=== PATIENT | male | born 1930 | race Caucasian/White ===

== ENCOUNTER 2017-03-10 16:47 | Emergency (ER) | payer MEDICARE, BC ==
--- NOTE | 2017-03-10 17:45 | EDM.PDOC ---
ED HPI GENERAL MEDICAL PROBLEM - General Chief Complaint: Syncope Stated Complaint: EVERYTHING WENT WHITE Time Seen by Provider: 03/10/17 17:03 Source of Information: Reports: Patient, Family, RN Notes Reviewed History Limitations: Reports: No Limitations - History of Present Illness INITIAL COMMENTS - FREE TEXT/NARRATIVE: 86-year-old gentleman presents emergency department today following an episode where he lost his color vision he states he can still make out detail but everything appeared to be white he states he did feel little dizzy he had been working in the garden but was sitting down when the event happened he states it lasted for a few moments and now everything is return to normal he feels back to his usual self - Related Data Allergies Allergy/AdvReac Type Severity Reaction Status Date / Time amoxicillin Allergy Cannot Verified 03/10/17 16:58 Remember Home Meds: Home Meds Aspirin [Halfprin] 81 mg PO DAILY 05/09/14 [History] Simvastatin [Zocor] 40 mg PO DAILY 05/09/14 [History] amLODIPine Besylate [Amlodipine Besylate] 5 mg PO DAILY 05/09/14 [History] Losartan Potassium 1 tab PO DAILY 09/26/15 [History] Calcium Carbonate [Antacid] 20 mg PO DAILY 08/22/16 [History] Cholecalciferol (Vitamin D3) [Vitamin D3] 1,000 unit PO DAILY 08/22/16 [History] Lisinopril 2.5 mg PO DAILY 03/10/17 [History] Past Medical History HEENT History: Reports: Cataract, Impaired Vision Cardiovascular History: Reports: Blood Clots/VTE/DVT, Bypass, CAD, High Cholesterol, Hypertension, Stents Gastrointestinal History: Reports: GERD Other Gastrointestinal History: colitis Genitourinary History: Reports: Renal Calculus Musculoskeletal History: Reports: Other (See Below) Other Musculoskeletal History: bursitis left - Infectious Disease History Infectious Disease History: Reports: Shingles - Past Surgical History HEENT Surgical History: Reports: Cataract Surgery, Tonsillectomy Cardiovascular Surgical History: Reports: Coronary Artery Bypass, Coronary Artery Stent GI Surgical History: Reports: Appendectomy Musculoskeletal Surgical History: Reports: Carpal Tunnel Social & Family History - Family History Family Medical History: Unobtainable - Tobacco Use Smoking Status *Q: Never Smoker Years of Tobacco use: 20 Used Tobacco, but Quit: No Month Tobacco Last Used: jul 1997 Second Hand Smoke Exposure: No - Caffeine Use Caffeine Use: Reports: Coffee, Soda - Alcohol Use Days Per Week of Alcohol Use: 0 - Recreational Drug Use Recreational Drug Use: No ED ROS GENERAL - Review of Systems Review Of Systems: See Below Constitutional: Reports: No Symptoms HEENT: Reports: Vision Change Cardiovascular: Reports: No Symptoms GI/Abdominal: Reports: No Symptoms Neurological: Reports: Dizziness ED EXAM, GENERAL - Physical Exam Exam: See Below Free Text/Narrative:: General: Elderly male, not in any distress, alert and oriented x3 HEENT: head is atraumatic normocephalic, eyes pupils equal round reactive to light, sclera clear no conjunctivitis appreciated. Funduscopic exam reveals sharp disc margins no papilledema Ears blocked by cerumen bilaterally bilaterally canals are clear. Nose no septal deviation, nares are clear, no blood present. Mouth mucosa is moist and pink no erythema or exudate noted in soft palate, tongue is midline uvula is midline, dentition is intact. Neck: Supple no thyromegaly no tracheal deviation. Nodes: Cervical nodes subclavicular nodes nontender no palpable lymphadenopathy noted. Lungs: clear to auscultation bilaterally with symmetrical respirations, no adventitious noise appreciated. CV: Regular rate and rhythm S1 and S2 appreciated no murmurs rubs or gallops noted. Abdomen: Soft, nontender, no palpable masses or organomegaly appreciated, no distention no guarding bowel sounds are present, . Neuro: Cranial nerves II through XII grossly intact Skin: Warm and dry, intact Extremities: No lower extremity edema appreciated, Course - Vital Signs Last Recorded V/S: Last Vital Signs Temp 97.4 F 03/10/17 16:55 Pulse 58 L 03/10/17 18:09 Resp 15 03/10/17 18:09 BP 114/61 03/10/17 18:09 Pulse Ox 95 03/10/17 18:09 - Orders/Labs/Meds Orders: Active Orders 24 hr Category Date Time Status Cardiac Monitoring [RC] .As Directed Care 03/10/17 17:42 Active EKG Documentation Completion [RC] ASDIRECTED Care 03/10/17 17:42 Active Chest 2V [CR] Stat Exams 03/10/17 17:42 Taken EKG 12 Lead [EK] Stat Ther 03/10/17 17:42 Ordered Labs: Laboratory Tests 03/10/17 03/10/17 Range/Units 17:50 17:50 WBC 9.6 (4.5-11.0) K/uL RBC 4.18 L (4.30-5.90) M/uL Hgb 12.4 (12.0-15.0) g/dL Hct 37.9 L (40.0-54.0) % MCV 91 (80-98) fL MCH 30 (27-31) pg MCHC 33 (32-36) % Plt Count 358 (150-400) K/uL Neut % (Auto) 69 H (36-66) % Lymph % (Auto) 17 L (24-44) % [place] % (Auto) 10 H (2-6) % Eos % (Auto) 3 (2-4) % Baso % (Auto) 1 (0-1) % Sodium 140 (140-148) mmol/L Potassium 5.1 (3.6-5.2) mmol/L Chloride 105 (100-108) mmol/L Carbon Dioxide 31 (21-32) mmol/L Anion Gap 4.3 L (5.0-14.0) mmol/L BUN 26 H (7-18) mg/dL Creatinine 1.8 H (0.8-1.3) mg/dL Est Cr Clr Drug Dosing TNP Estimated GFR (MDRD) 36 L (>60) Glucose 112 H (74-106) mg/dL Calcium 8.8 (8.5-10.1) mg/dL Total Bilirubin 0.5 (0.2-1.0) mg/dL AST 19 (15-37) U/L ALT 15 (12-78) U/L Alkaline Phosphatase 48 (46-116) U/L Total Protein 7.1 (6.4-8.2) g/dL Albumin 3.0 L (3.4-5.0) g/dL Globulin 4.1 H (2.3-3.5) g/dL Albumin/Globulin Ratio 0.7 L (1.2-2.2) Departure - Departure Time of Disposition: 18:35 Disposition: Home, Self-Care 01 Condition: Fair Clinical Impression: Loss of color - Discharge Information Forms: ED Department Discharge Additional Instructions: Please followup with your primary care provider in 3-4 days if not better, please call return to the emergency department with worsening of symptoms. - My Orders Last 24 Hours: My Active Orders 03/10/17 17:42 Cardiac Monitoring [RC] .As Directed EKG Documentation Completion [RC] ASDIRECTED Chest 2V [CR] Stat EKG 12 Lead [EK] Stat - Assessment/Plan Last 24 Hours: My Active Orders 03/10/17 17:42 Cardiac Monitoring [RC] .As Directed EKG Documentation Completion [RC] ASDIRECTED Chest 2V [CR] Stat EKG 12 Lead [EK] Stat Plan: Assessment Acuity = acute Site and laterality = bilateral loss of color vision with dizziness Etiology = unclear etiology all symptoms now resolved Manifestations = [pneumonia manifestations dyspnea, hypoxia, cough] Location of injury = Home Lab values = CBC unremarkable creatinine elevated 1.8 consistent chronic renal failure stage G IIIB albumin 3.0 consistent hypoalbuminemia EKG no ST elevations or depressions same as prior EKGs chest x-ray I did review films myself I cannot appreciate any acute process, the official read from radiology is pending Plan I did review lab work chest x-ray and EKG results with him recommend follow-up with primary care consider further evaluation perhaps with an MRI for the bilateral vision loss Patient was in agreement with the plan all questions were answered, they were instructed to return to the emergency department or call for worsening symptoms. This note was dictated using [employer] voice recognition software please call with any questions.
[2017-03-10 18:10] VITALS: BP 114/61
--- NOTE | 2017-03-11 08:34 | CR ---
Chest 2V INDICATION: cough COMPARISON: 08/22/2016 FINDINGS: Two views. Heart size normal. Sternotomy wires, most of which are fracture again noted. No infiltrates, pleural effusions, or signs of pulmonary edema. IMPRESSION: Nothing acute.
== END 2017-03-10 18:52 | disposition home or self-care (01) ==
LOC: JP.ED 16:47
DX: H54.3 Unqualified visual loss, both eyes (principal); R42 Dizziness and giddiness; I25.10 Atherosclerotic heart disease of native coronary artery without angina pectoris; E78.00 Pure hypercholesterolemia, unspecified; I10 Essential (primary) hypertension; K21.9 Gastro-esophageal reflux disease without esophagitis; Z86.718 Personal history of other venous thrombosis and embolism; Z88.1 Allergy status to other antibiotic agents; Z79.82 Long term (current) use of aspirin; Z79.899 Other long term (current) drug therapy; Z87.442 Personal history of urinary calculi; Z98.49 Cataract extraction status, unspecified eye; Z95.1 Presence of aortocoronary bypass graft; Z95.5 Presence of coronary angioplasty implant and graft; Z90.49 Acquired absence of other specified parts of digestive tract; Z98.890 Other specified postprocedural states
CPT/HCPCS: 36415; 71020; 71020-26; 80053; 85025; 93005; 93010; 99283; 99284-25

== ENCOUNTER 2017-03-23 18:39 | Emergency (ER) | payer MEDICARE, BC ==
[2017-03-23 18:54] VITALS: BP 154/60
--- NOTE | 2017-03-23 19:18 | EDM.PDOC ---
ED HPI GENERAL MEDICAL PROBLEM - General Chief Complaint: Laceration Stated Complaint: L THUMB LACERATION Time Seen by Provider: 03/23/17 19:10 Source of Information: Reports: Patient History Limitations: Reports: No Limitations - History of Present Illness INITIAL COMMENTS - FREE TEXT/NARRATIVE: 86 yo male here after lacerating the dorsum of his L thumb with a hand saw before arrival. Tetanus is UTD. Has a small kathie to the adjacent L index finger as well. Onset: Today Onset Date: 03/23/17 Onset Time: 18:00 Duration: Minutes:, Constant Location: Reports: Upper Extremity, Left Quality: Reports: Dull Severity: Mild Improves with: Reports: None Worsens with: Reports: None Associated Symptoms: Reports: No Other Symptoms Treatments RESTORATIVE AIDE: Reports: Other (see below) (none) Left Hand Pain Score (Numeric/FACES): 0 - Related Data Allergies Allergy/AdvReac Type Severity Reaction Status Date / Time amoxicillin Allergy Cannot Verified 03/10/17 16:58 Remember Home Meds: Home Meds Aspirin [Halfprin] 81 mg PO DAILY 05/09/14 [History] Simvastatin [Zocor] 40 mg PO DAILY 05/09/14 [History] Losartan Potassium 1 tab PO DAILY 09/26/15 [History] Calcium Carbonate [Antacid] 20 mg PO DAILY 08/22/16 [History] Cholecalciferol (Vitamin D3) [Vitamin D3] 1,000 unit PO DAILY 08/22/16 [History] Lisinopril 2.5 mg PO DAILY 03/10/17 [History] Past Medical History HEENT History: Reports: Cataract, Impaired Vision Cardiovascular History: Reports: Blood Clots/VTE/DVT, Bypass, CAD, High Cholesterol, Hypertension, [place], Stents Gastrointestinal History: Reports: GERD Other Gastrointestinal History: colitis Genitourinary History: Reports: Renal Calculus Musculoskeletal History: Reports: Other (See Below) Other Musculoskeletal History: bursitis left - Infectious Disease History Infectious Disease History: Reports: Shingles - Past Surgical History HEENT Surgical History: Reports: Cataract Surgery, Tonsillectomy Cardiovascular Surgical History: Reports: Coronary Artery Bypass, Coronary Artery Stent GI Surgical History: Reports: Appendectomy Musculoskeletal Surgical History: Reports: Carpal Tunnel Social & Family History - Family History Family Medical History: Unobtainable - Tobacco Use Smoking Status *Q: Never Smoker Years of Tobacco use: 20 Used Tobacco, but Quit: No Month Tobacco Last Used: jul 1997 Second Hand Smoke Exposure: No - Caffeine Use Caffeine Use: Reports: Coffee - Alcohol Use Days Per Week of Alcohol Use: 0 - Recreational Drug Use Recreational Drug Use: No ED ROS GENERAL - Review of Systems Review Of Systems: See Below Constitutional: Reports: No Symptoms Musculoskeletal: Reports: No Symptoms Skin: Reports: Wound (L thumb/index fingers) Neurological: Reports: No Symptoms ED EXAM, SKIN/RASH Exam: See Below Exam Limited By: No Limitations General Appearance: Alert, WD/WN, No Apparent Distress Extremities: Other (L hand wound) Neurological: Alert, Oriented, CN II-XII Intact, Normal Cognition, No Motor/ Sensory Deficits Psychiatric: Normal Affect, Normal Mood Skin: Warm, Dry, Normal Color, No Rash, Wound/Incision (2 cm linear laceration to the dorsum of the L thumb just distal to the IP jt. Small linear laceration to the adjacent index finger not requiring repair. No active bleeding. No infection or FB.) Location, Skin: Upper Extremity, Left Characteristics: Linear Associated features: Tenderness. No: Warmth, Induration Lymphatic: No Adenopathy ED SKIN PROCEDURES - Laceration/Wound Repair Left Dorsal Finger Lac/Wound length In cm: 2 Appearance: Subcutaneous, Linear, Clean Distal NVT: Neuro & Vascular Intact, No Tendon Injury Anesthetic Type: Local Local Anesthesia - Lidocaine (Xylocaine): 1% Plain Local Anesthetic Volume: 3cc Skin Prep: Saline Exploration/Debridement/Repair: Wound Explored Closed with: Sutures Suture Size: other (5-0 Ethilon) # of Sutures: 4 Suture Type: Nylon Drain Placement: No Sterile Dressing Applied: Nurse Tetanus Status Addressed: Yes Complications: No Course - Vital Signs Last Recorded V/S: Last Vital Signs Temp 36.4 C 03/23/17 18:53 Pulse 49 L 03/23/17 18:53 Resp 16 03/23/17 18:53 BP 154/60 H 03/23/17 18:53 Pulse Ox - Orders/Labs/Meds Orders: Active Orders 24 hr Category Date Time Status Lidocaine 1% [Xylocaine-MPF 1%] Med 03/23/17 19:13 Once 5 ml INJECT ONETIME ONE Departure - Departure Time of Disposition: 19:35 Disposition: Home, Self-Care 01 Condition: Good Clinical Impression: Laceration of thumb Qualifiers: Encounter type: initial encounter Damage to nail status: without damage Foreign body presence: without foreign body Laterality: left Qualified Code(s): S61.012A - Laceration without foreign body of left thumb without damage to nail , initial encounter - Discharge Information Referrals: Heraclio Dye MD [Primary Care Provider] - - My Orders Last 24 Hours: My Active Orders 03/23/17 19:13 Lidocaine 1% [Xylocaine-MPF 1%] 5 ml INJECT ONETIME ONE - Assessment/Plan Last 24 Hours: My Active Orders 03/23/17 19:13 Lidocaine 1% [Xylocaine-MPF 1%] 5 ml INJECT ONETIME ONE
[2017-03-23] MEDS ORDERED: Bacitracin Oint 1 GM U/D Packet ONE (19:41)
== END 2017-03-23 19:58 | disposition home or self-care (01) ==
LOC: JP.ED 18:39
DX: S61.012A Laceration without foreign body of left thumb without damage to nail, initial encounter (principal); I25.10 Atherosclerotic heart disease of native coronary artery without angina pectoris; E78.00 Pure hypercholesterolemia, unspecified; I25.2 Old myocardial infarction; I10 Essential (primary) hypertension; K21.9 Gastro-esophageal reflux disease without esophagitis; Z88.1 Allergy status to other antibiotic agents; Z87.442 Personal history of urinary calculi; Z86.718 Personal history of other venous thrombosis and embolism; Z79.82 Long term (current) use of aspirin; Z79.899 Other long term (current) drug therapy; Z98.49 Cataract extraction status, unspecified eye; Z95.1 Presence of aortocoronary bypass graft; Z95.5 Presence of coronary angioplasty implant and graft; Z90.49 Acquired absence of other specified parts of digestive tract; Z98.890 Other specified postprocedural states; W27.0XXA Contact with workbench tool, initial encounter
CPT/HCPCS: 12001; 90471; 99283; 99283-25

== ENCOUNTER 2017-07-16 14:10 | Emergency (ER) | payer MEDICARE, BC ==
[2017-07-16 14:30] VITALS: BP 139/57
--- NOTE | 2017-07-16 17:49 | EDM.PDOC ---
ED HPI GENERAL MEDICAL PROBLEM - General Chief Complaint: Gastrointestinal Problem Stated Complaint: UNABLE TO PASS STOOLS Time Seen by Provider: 07/16/17 14:54 Source of Information: Reports: Patient, Family History Limitations: Reports: No Limitations - History of Present Illness INITIAL COMMENTS - FREE TEXT/NARRATIVE: This gentleman complains of vague abdominal pain for the last 2 days or so. He has frequent flatus and sometimes passes a little tiny bit of blood. He hasn't had a bowel movement for 2 days. There is a history of a small bowel obstruction. Denies any fever denies any urinary difficulties. His son said that occasionally he's had a little bit of blood in his urine for a long time. Patient says he eats all the time but the food just doesn't seem to come out the other end. Most of his abdominal pain he says is kind of around the gisell Umbilical area - Related Data Allergies Allergy/AdvReac Type Severity Reaction Status Date / Time amoxicillin Allergy Cannot Verified 03/10/17 16:58 Remember Home Meds: Home Meds Aspirin [Halfprin] 81 mg PO DAILY 05/09/14 [History] Simvastatin [Zocor] 40 mg PO DAILY 05/09/14 [History] Losartan Potassium 1 tab PO DAILY 09/26/15 [History] Calcium Carbonate [Antacid] 20 mg PO DAILY 08/22/16 [History] Cholecalciferol (Vitamin D3) [Vitamin D3] 1,000 unit PO DAILY 08/22/16 [History] Lisinopril 2.5 mg PO DAILY 03/10/17 [History] Past Medical History HEENT History: Reports: Cataract, Impaired Vision Cardiovascular History: Reports: Blood Clots/VTE/DVT, Bypass, CAD, High Cholesterol, Hypertension, [place], Stents Gastrointestinal History: Reports: GERD Other Gastrointestinal History: colitis Genitourinary History: Reports: Renal Calculus Musculoskeletal History: Reports: Other (See Below) Other Musculoskeletal History: bursitis left - Infectious Disease History Infectious Disease History: Reports: Shingles - Past Surgical History HEENT Surgical History: Reports: Cataract Surgery, Tonsillectomy Cardiovascular Surgical History: Reports: Coronary Artery Bypass, Coronary Artery Stent GI Surgical History: Reports: Appendectomy Musculoskeletal Surgical History: Reports: Carpal Tunnel Social & Family History - Family History Family Medical History: Unobtainable - Tobacco Use Smoking Status *Q: Never Smoker Years of Tobacco use: 20 Used Tobacco, but Quit: No Month Tobacco Last Used: jul 1997 Second Hand Smoke Exposure: No - Caffeine Use Caffeine Use: Reports: Coffee - Alcohol Use Days Per Week of Alcohol Use: 0 - Recreational Drug Use Recreational Drug Use: No ED ROS GENERAL - Review of Systems Review Of Systems: ROS reveals no pertinent complaints other than HPI. ED EXAM, GI/ABD - Physical Exam Exam: See Below Exam Limited By: No Limitations General Appearance: Alert, WD/WN, No Apparent Distress Eyes: Bilateral: Normal Appearance Throat/Mouth: Normal Inspection Respiratory/Chest: Lungs Clear Cardiovascular: Normal Peripheral Pulses, Regular Rate, Rhythm GI/Abdominal Exam: Normal Bowel Sounds, Soft, Non-Tender, Other (There is some very slight scant inflammation at the umbilicus but I probed this with my fingertip and it is completely nontender. Most likely is just a slight amount of yeast and doesn't need treatment.) Rectal (Males) Exam: Normal Exam, Other (Prostate slightly enlarged and just minimally tender. There was a trace of bloody mucus on the tip of my finger but no stool was present) Extremities: Normal Inspection Course - Vital Signs Last Recorded V/S: Last Vital Signs Temp 35.8 C 07/16/17 14:28 Pulse 51 L 07/16/17 14:28 Resp 14 07/16/17 14:28 BP 139/57 L 07/16/17 14:28 Pulse Ox 98 07/16/17 14:28 - Orders/Labs/Meds Orders: Active Orders 24 hr Category Date Time Status Abdomen Pelvis wo Cont [CT] Stat Exams 07/16/17 15:21 Taken Labs: Laboratory Tests 07/16/17 07/16/17 07/16/17 Range/Units 15:32 15:32 15:40 WBC 6.9 (4.5-11.0) K/uL RBC 4.32 (4.30-5.90) M/uL Hgb 12.9 (12.0-15.0) g/dL Hct 38.8 L (40.0-54.0) % MCV 90 (80-98) fL MCH 30 (27-31) pg MCHC 33 (32-36) % Plt Count 258 (150-400) K/uL Neut % (Auto) 65 (36-66) % Lymph % (Auto) 24 (24-44) % [place] % (Auto) 8 H (2-6) % Eos % (Auto) 3 (2-4) % Baso % (Auto) 1 (0-1) % Sodium 137 L (140-148) mmol/L Potassium 4.9 (3.6-5.2) mmol/L Chloride 101 (100-108) mmol/L Carbon Dioxide 27 (21-32) mmol/L Anion Gap 13.9 (5.0-14.0) mmol/L BUN 27 H (7-18) mg/dL Creatinine 1.4 H (0.8-1.3) mg/dL Est Cr Clr Drug Dosing 40.34 mL/min Estimated GFR (MDRD) 48 L (>60) Glucose 97 (74-106) mg/dL Calcium 9.2 (8.5-10.1) mg/dL Total Bilirubin 0.7 (0.2-1.0) mg/dL AST 25 (15-37) U/L ALT 20 (12-78) U/L Alkaline Phosphatase 47 (46-116) U/L Total Protein 7.3 (6.4-8.2) g/dL Albumin 3.6 (3.4-5.0) g/dL Globulin 3.7 H (2.3-3.5) g/dL Albumin/Globulin Ratio 1.0 L (1.2-2.2) Urine Color Yellow Urine Appearance Clear Urine pH 5.0 (4.5-8.0) Ur Specific [place] 1.020 (1.008-1.030) Urine Protein Negative (NEGATIVE) mg/dL Urine Glucose (UA) Normal (NEGATIVE) mg/dL Urine Ketones Negative (NEGATIVE) mg/dL Urine Occult Blood Large (NEGATIVE) Urine Nitrite Negative (NEGAITVE) Urine Bilirubin Negative (NEGATIVE) Urine Urobilinogen Normal (NORMAL) mg/dL Ur Leukocyte Esterase Negative (NEGATIVE) Urine RBC 5-10 H (0-5) Urine WBC 0-5 (0-5) Ur Epithelial Cells Rare Amorphous Sediment Not seen Urine Bacteria Few Urine Mucus Few - Radiology Interpretation Free Text/Narrative:: Noncontrast CT of the abdomen shows no acute abnormalities. There is a moderate amount of gas throughout the colon but definitely no obstruction. There is no evidence of any constipation Departure - Departure Time of Disposition: 17:46 Disposition: Home, Self-Care 01 Condition: Fair Clinical Impression: Abdominal pain - Discharge Information Instructions: Abdominal Pain, Adult, [id number] Referrals: Heraclio Dye MD [Primary Care Provider] - Forms: ED Department Discharge Additional Instructions: There was no blockage and there was no constipation. The pain appears to be caused by some excess gas in the large and small bowel even though there is not any kind of obstruction. Try using Simethicone, which is found in medicines like Gas-X and Mylicon. About 160 mg 4 times a day should be enough. See your Dr. if no better in 2 or 3 days or return to the ER at any time - My Orders Last 24 Hours: My Active Orders 07/16/17 15:21 Abdomen Pelvis wo Cont [CT] Stat - Assessment/Plan Last 24 Hours: My Active Orders 07/16/17 15:21 Abdomen Pelvis wo Cont [CT] Stat
== END 2017-07-16 18:27 | disposition home or self-care (01) ==
LOC: JP.ED 14:10
DX: R10.9 Unspecified abdominal pain (principal); E78.00 Pure hypercholesterolemia, unspecified; Z79.82 Long term (current) use of aspirin; Z79.899 Other long term (current) drug therapy; Z88.1 Allergy status to other antibiotic agents
CPT/HCPCS: 36415; 74176; 80053; 81001; 85025; 99283; 99284-25

== ENCOUNTER 2018-03-22 09:48 | Emergency (ER) | payer MEDICARE, BC ==
--- NOTE | 2018-03-22 12:09 | CT ---
Head wo Cont CLINICAL HISTORY: Falling and vision changes COMPARISON: None TECHNIQUE: Transverse scans were obtained from the base of the skull through the vertex without IV co ntrast on a multislice, multidetector CT scanner. Auto dosage reduction and iterative reconstruction techniques employed. FINDINGS: No focal abnormal parenchymal density is identified. There is no mass effect, hemorrhage, o r extraaxial collection. The basal cisterns and sulci over the convexities are moderately prominent p articularly over the frontal lobes. The ventricles are prominent.. IMPRESSION: Moderate atrophy. This is particularly prominent over the frontal lobes. This is likely d ue to settling. The bilateral subdural hygromas are felt less likely. No focal mass or hemorrhage.
[2018-03-22] MEDS ORDERED: Sodium Chloride 0.9% 1,000 ML IV SCH (12:30)
--- NOTE | 2018-03-22 12:40 | EDM.PDOC ---
ED HPI GENERAL MEDICAL PROBLEM - General Chief Complaint: General Stated Complaint: WEAKNESS AND FALLING Time Seen by Provider: 03/22/18 10:25 Source of Information: Reports: Patient History Limitations: Reports: No Limitations - History of Present Illness INITIAL COMMENTS - FREE TEXT/NARRATIVE: pt is suddenly having falls. In the last 2-3 days he has fallen 3 times. He states he feels lite headed and loses his balance but he does not pass out. Onset: Gradual, Other (last 3 days. He has not had chest pain. He is having some left shoulder pain and ia tender since the last fall. ) Duration: Hour(s): Location: Reports: Head, Chest Associated Symptoms: Reports: Weakness, Other (pt feels like he is going to pass out but he does not. ) - Related Data Allergies Allergy/AdvReac Type Severity Reaction Status Date / Time amoxicillin Allergy Cannot Verified 03/22/18 10:32 Remember Home Meds: Home Meds Aspirin [Halfprin] 81 mg PO DAILY 05/09/14 [History] Simvastatin [Zocor] 40 mg PO DAILY 05/09/14 [History] Losartan Potassium 1 tab PO DAILY 09/26/15 [History] Calcium Carbonate [Antacid] 20 mg PO DAILY 08/22/16 [History] Cholecalciferol (Vitamin D3) [Vitamin D3] 1,000 unit PO DAILY 08/22/16 [History] amLODIPine [Norvasc] 5 mg PO DAILY 03/22/18 [History] Past Medical History HEENT History: Reports: Cataract, Impaired Vision Cardiovascular History: Reports: Blood Clots/VTE/DVT, Bypass, CAD, High Cholesterol, Hypertension, [place], Stents Gastrointestinal History: Reports: GERD Other Gastrointestinal History: colitis Genitourinary History: Reports: Renal Calculus Musculoskeletal History: Reports: Other (See Below) Other Musculoskeletal History: bursitis left - Infectious Disease History Infectious Disease History: Reports: Chicken Pox, Mumps, Shingles - Past Surgical History HEENT Surgical History: Reports: Cataract Surgery, Tonsillectomy Cardiovascular Surgical History: Reports: Coronary Artery Bypass, Coronary Artery Stent GI Surgical History: Reports: Appendectomy Musculoskeletal Surgical History: Reports: Carpal Tunnel Social & Family History - Family History Family Medical History: Unobtainable - Tobacco Use Smoking Status *Q: Former Smoker Years of Tobacco use: 30 Used Tobacco, but Quit: Yes Month/Year Tobacco Last Used: 06/1998 - Caffeine Use Caffeine Use: Reports: Coffee, Soda - Recreational Drug Use Recreational Drug Use: No ED ROS GENERAL - Review of Systems Review Of Systems: See Below Constitutional: Reports: No Symptoms HEENT: Reports: No Symptoms Respiratory: Reports: Shortness of Breath Cardiovascular: Reports: Other (pt is getting lite headed and sweaty. ) Endocrine: Reports: No Symptoms GI/Abdominal: Reports: No Symptoms : Reports: No Symptoms Musculoskeletal: Reports: No Symptoms Skin: Reports: No Symptoms ED EXAM, GENERAL - Physical Exam Exam: See Below Free Text/Narrative:: pt has fallen 3 times in the last 3 dayus. He does not have a loss of consciouness at that time. He is sweaty usually when he has the episodes. He has had left shoulder pain but he thinks this was from the fall. he has not had chest pain. He is mildly sob. Exam Limited By: Other (pt is a active 80 year old who lives at home.) General Appearance: Alert, Mild Distress, Other (pupils are equal and reactive. ) Ears: Normal TMs Nose: Normal Inspection Throat/Mouth: Normal Inspection Head: Atraumatic Neck: Normal Inspection Respiratory/Chest: No Respiratory Distress Cardiovascular: Regular Rate, Rhythm, Bradycardia, Other (sinus rhythm with rate that drop in the 45 range) GI/Abdominal: Soft, Non-Tender (Male) Exam: Deferred Rectal (Males) Exam: Deferred Back Exam: Normal Inspection Extremities: Normal Inspection Neurological: Alert, Oriented, Normal Cognition Psychiatric: Normal Affect Course - Vital Signs Last Recorded V/S: Last Vital Signs Temp 36.5 C 03/22/18 10:46 Pulse 44 L 03/22/18 13:25 Resp 15 03/22/18 13:25 BP 122/39 L 03/22/18 13:25 Pulse Ox 98 03/22/18 13:25 Orthostatic Blood Pressure [ 123/42 Standing] Orthostatic Blood Pressure [ 101/41 Sitting] Orthostatic Blood Pressure [ 116/43 Supine] - Orders/Labs/Meds Orders: Active Orders 24 hr Category Date Time Status EKG Documentation Completion [RC] ASDIRECTED Care 03/22/18 12:05 Active Chest 1V Frontal [CR] Stat Exams 03/22/18 12:33 Taken Shoulder Comp Lt [CR] Stat Exams 03/22/18 12:33 Taken UA W/MICROSCOPIC [URIN] Urgent Lab 03/22/18 11:19 Ordered Sodium Chloride 0.9% [Normal Saline] 1,000 ml Med 03/22/18 12:30 Active IV ASDIRECTED EKG 12 Lead [EK] Routine Ther 03/22/18 12:05 Ordered Medication Orders Sodium Chloride (Normal Saline) 1,000 mls @ 999 mls/hr IV ASDIRECTED SERA Last Admin: 03/22/18 12:33 Dose: 999 mls/hr Labs: Laboratory Tests 03/22/18 03/22/18 03/22/18 Range/Units 11:00 11:00 11:19 WBC 7.8 (4.5-11.0) K/uL RBC 4.16 L (4.30-5.90) M/uL Hgb 12.5 (12.0-15.0) g/dL Hct 37.7 L (40.0-54.0) % MCV 91 (80-98) fL MCH 30 (27-31) pg MCHC 33 (32-36) % Plt Count 265 (150-400) K/uL Neut % (Auto) 69 H (36-66) % Lymph % (Auto) 17 L (24-44) % [place] % (Auto) 9 H (2-6) % Eos % (Auto) 4 (2-4) % Baso % (Auto) 1 (0-1) % Sodium 135 L (140-148) mmol/L Potassium 4.6 (3.6-5.2) mmol/L Chloride 102 (100-108) mmol/L Carbon Dioxide 27 (21-32) mmol/L Anion Gap 10.6 (5.0-14.0) mmol/L BUN 21 H (7-18) mg/dL Creatinine 1.6 H (0.8-1.3) mg/dL Est Cr Clr Drug Dosing 35.70 mL/min Estimated GFR (MDRD) 41 L (>60) Glucose 105 (74-106) mg/dL Calcium 9.1 (8.5-10.1) mg/dL Total Bilirubin 0.6 (0.2-1.0) mg/dL AST 39 H (15-37) U/L ALT 22 (12-78) U/L Alkaline Phosphatase 48 (46-116) U/L Troponin I (0.000-0.056) ng/mL Total Protein 6.6 (6.4-8.2) g/dL Albumin 3.2 L (3.4-5.0) g/dL Globulin 3.4 (2.3-3.5) g/dL Albumin/Globulin Ratio 0.9 L (1.2-2.2) Urine Color Yellow Urine Appearance Clear Urine pH 5.0 (4.5-8.0) Ur Specific [place] 1.010 (1.008-1.030) Urine Protein Negative (NEGATIVE) mg/dL Urine Glucose (UA) Normal (NEGATIVE) mg/dL Urine Ketones Negative (NEGATIVE) mg/dL Urine Occult Blood Large (NEGATIVE) Urine Nitrite Negative (NEGAITVE) Urine Bilirubin Negative (NEGATIVE) Urine Urobilinogen Normal (NORMAL) mg/dL Ur Leukocyte Esterase Negative (NEGATIVE) Urine RBC 0-5 (0-5) Urine WBC 0-5 (0-5) Ur Epithelial Cells Not seen Amorphous Sediment Rare Urine Bacteria Not seen Urine Mucus Not seen 03/22/18 Range/Units 12:05 WBC (4.5-11.0) K/uL RBC (4.30-5.90) M/uL Hgb (12.0-15.0) g/dL Hct (40.0-54.0) % MCV (80-98) fL MCH (27-31) pg MCHC (32-36) % Plt Count (150-400) K/uL Neut % (Auto) (36-66) % Lymph % (Auto) (24-44) % [place] % (Auto) (2-6) % Eos % (Auto) (2-4) % Baso % (Auto) (0-1) % Sodium (140-148) mmol/L Potassium (3.6-5.2) mmol/L Chloride (100-108) mmol/L Carbon Dioxide (21-32) mmol/L Anion Gap (5.0-14.0) mmol/L BUN (7-18) mg/dL Creatinine (0.8-1.3) mg/dL Est Cr Clr Drug Dosing mL/min Estimated GFR (MDRD) (>60) Glucose (74-106) mg/dL Calcium (8.5-10.1) mg/dL Total Bilirubin (0.2-1.0) mg/dL AST (15-37) U/L ALT (12-78) U/L Alkaline Phosphatase (46-116) U/L Troponin I 0.080 H* (0.000-0.056) ng/mL Total Protein (6.4-8.2) g/dL Albumin (3.4-5.0) g/dL Globulin (2.3-3.5) g/dL Albumin/Globulin Ratio (1.2-2.2) Urine Color Urine Appearance Urine pH (4.5-8.0) Ur Specific [place] (1.008-1.030) Urine Protein (NEGATIVE) mg/dL Urine Glucose (UA) (NEGATIVE) mg/dL Urine Ketones (NEGATIVE) mg/dL Urine Occult Blood (NEGATIVE) Urine Nitrite (NEGAITVE) Urine Bilirubin (NEGATIVE) Urine Urobilinogen (NORMAL) mg/dL Ur Leukocyte Esterase (NEGATIVE) Urine RBC (0-5) Urine WBC (0-5) Ur Epithelial Cells Amorphous Sediment Urine Bacteria Urine Mucus Meds: Medications Generic Name Dose Route Start Last Admin Trade Name Freq PRN Reason Stop Dose Admin Sodium Chloride 1,000 mls @ 999 mls/hr 03/22/18 12:30 03/22/18 12:33 Normal Saline IV 999 mls/hr ASDIRECTED SERA Administration - Re-Assessments/Exams Free Text/Narrative Re-Assessment/Exam: 03/22/18 12:49 ekg shows poor r progression anteriorly. He has a elevated trop at .080. He has a drop in bp when he stands so he somewhat orthostatic. Pt did take asa 325 at home. 03/22/18 14:35 Departure - Departure Time of Disposition: 12:56 Disposition: DC/Tfer to Acute Hospital 02 Condition: Fair Clinical Impression: Elevated troponin, Bradycardia, Falling episodes - Discharge Information Referrals: Heraclio Dye MD [Primary Care Provider] - Forms: ED Department Discharge Care Plan Goals: to cardiology Janie - My Orders Last 24 Hours: My Active Orders 03/22/18 11:19 UA W/MICROSCOPIC [URIN] Urgent 03/22/18 12:05 EKG Documentation Completion [RC] ASDIRECTED EKG 12 Lead [EK] Routine 03/22/18 12:30 Sodium Chloride 0.9% [Normal Saline] 1,000 ml IV ASDIRECTED 03/22/18 12:33 Chest 1V Frontal [CR] Stat Shoulder Comp Lt [CR] Stat - Assessment/Plan Last 24 Hours: My Active Orders 03/22/18 11:19 UA W/MICROSCOPIC [URIN] Urgent 03/22/18 12:05 EKG Documentation Completion [RC] ASDIRECTED EKG 12 Lead [EK] Routine 03/22/18 12:30 Sodium Chloride 0.9% [Normal Saline] 1,000 ml IV ASDIRECTED 03/22/18 12:33 Chest 1V Frontal [CR] Stat Shoulder Comp Lt [CR] Stat
[2018-03-22 13:25] VITALS: BP 122/39
--- NOTE | 2018-03-22 15:15 | CR ---
CHEST: Portable CLINICAL HISTORY:Chest and shoulder pain COMPARISON:2017 FINDINGS: Patient has had previous sternotomy. All the sternal wires are fractured. There are athero sclerotic changes in the aorta. Pulmonary vascularity appears normal. No infiltrates are seen. IMPRESSION: No acute cardiopulmonary process or significant change from prior study
--- NOTE | 2018-03-22 15:16 | CR ---
Shoulder Comp Lt CLINICAL HISTORY: Left shoulder pain FINDINGS: There is no acute fracture or dislocation in the left shoulder. There is some periarticular spurring in the glenohumeral joint and in the AC joint. The femoral head position suggests some join t laxity Impression: Osteophytic change Shoulder position suggests some joint laxity.
== END 2018-03-22 14:25 ==
LOC: JP.ED 09:48
DX: R00.1 Bradycardia, unspecified (principal); R79.89 Other specified abnormal findings of blood chemistry; M25.512 Pain in left shoulder; I10 Essential (primary) hypertension; Z95.1 Presence of aortocoronary bypass graft; I25.10 Atherosclerotic heart disease of native coronary artery without angina pectoris; Z95.5 Presence of coronary angioplasty implant and graft; Z87.891 Personal history of nicotine dependence; Z88.1 Allergy status to other antibiotic agents; Z79.82 Long term (current) use of aspirin; W19.XXXA Unspecified fall, initial encounter
CPT/HCPCS: 36415; 70450; 71045; 73030; 80053; 81001; 84484; 85025; 93005; 96360; 99285; J7030; 93010; 99284

== ENCOUNTER 2018-04-18 10:15 | Emergency (ER) | payer MEDICARE, BC ==
--- NOTE | 2018-04-18 10:40 | EDM.PDOC ---
ED HPI GENERAL MEDICAL PROBLEM - General Chief Complaint: General Stated Complaint: MEDICAL VIA [facility] Time Seen by Provider: 04/18/18 10:30 Source of Information: Reports: Patient, Old Records, RN Notes Reviewed History Limitations: Reports: No Limitations - History of Present Illness INITIAL COMMENTS - FREE TEXT/NARRATIVE: 87-year-old gentleman presents to the emergency department today via EMS services with a complaint of weakness, last 3 days with left arm pain. He was recently evaluated in emergency department on March 22 found to be bradycardic with elevated troponin was subsequently transferred to [facility] for further evaluation with pacemaker placement. He states he is not had a follow-up with his primary care provider he is not falling as before but he feels generally weak over the last couple days the point where he has difficulty getting out of bed he denies any other symptoms other than constipation every now and again - Related Data Allergies Allergy/AdvReac Type Severity Reaction Status Date / Time amoxicillin Allergy Cannot Verified 04/18/18 10:17 Remember Home Meds: Home Meds Aspirin [Halfprin] 81 mg PO DAILY 05/09/14 [History] Simvastatin [Zocor] 40 mg PO DAILY 05/09/14 [History] Losartan Potassium 1 tab PO DAILY 09/26/15 [History] Calcium Carbonate [Antacid] 20 mg PO DAILY 08/22/16 [History] Apixaban [Eliquis] 5 mg PO BID 04/18/18 [History] Cholecalciferol (Vitamin D3) [Vitamin D] 5,000 unit PO WEEKLY 04/18/18 [History] Past Medical History HEENT History: Reports: Allergic Rhinitis, Cataract, Hard of Hearing, Impaired Vision Cardiovascular History: Reports: Blood Clots/VTE/DVT, Bypass, CAD, High Cholesterol, Hypertension, [place], Pacemaker, Stents Gastrointestinal History: Reports: GERD Other Gastrointestinal History: colitis Genitourinary History: Reports: Renal Calculus Musculoskeletal History: Reports: Other (See Below) Other Musculoskeletal History: bursitis left - Infectious Disease History Infectious Disease History: Reports: Shingles - Past Surgical History Head Surgeries/Procedures: Reports: None HEENT Surgical History: Reports: Cataract Surgery, Tonsillectomy Cardiovascular Surgical History: Reports: Coronary Artery Bypass, Coronary Artery Stent GI Surgical History: Reports: Appendectomy Musculoskeletal Surgical History: Reports: Carpal Tunnel Social & Family History - Family History Family Medical History: Noncontributory - Tobacco Use Smoking Status *Q: Former Smoker Used Tobacco, but Quit: Yes Month/Year Tobacco Last Used: unknown Second Hand Smoke Exposure: No - Caffeine Use Caffeine Use: Reports: Coffee - Recreational Drug Use Recreational Drug Use: No ED ROS GENERAL - Review of Systems Review Of Systems: See Below Constitutional: Reports: Weakness, Fatigue HEENT: Reports: No Symptoms Respiratory: Reports: No Symptoms Cardiovascular: Reports: No Symptoms GI/Abdominal: Reports: Constipation : Reports: No Symptoms Musculoskeletal: Reports: No Symptoms Skin: Reports: No Symptoms Neurological: Reports: No Symptoms Psychiatric: Reports: No Symptoms ED EXAM, GENERAL - Physical Exam Exam: See Below Free Text/Narrative:: General: Male, not in any distress, alert HEENT: head is atraumatic normocephalic, eyes pupils equal round reactive to light, sclera clear no conjunctivitis appreciated. Ears tympanic membranes blocked by cerumen bilaterally. Nose no septal deviation, nares are clear, no blood present. Mouth mucosa is moist and pink no erythema or exudate noted in soft palate, tongue is midline uvula is midline, dentition is intact. Neck: Supple no thyromegaly no tracheal deviation. Nodes: Cervical nodes subclavicular nodes nontender no palpable lymphadenopathy noted. Lungs: clear to auscultation bilaterally with symmetrical respirations, no adventitious noise appreciated. CV: Regular rate and rhythm S1 and S2 appreciated no murmurs rubs or gallops noted. Abdomen: Soft, nontender, no palpable masses or organomegaly appreciated, no distention no guarding bowel sounds are present, . Neuro: Cranial nerves II through XII grossly intact Skin: Warm and dry, intact Extremities: No lower extremity edema appreciated, Course - Vital Signs Last Recorded V/S: Last Vital Signs Temp 97.6 F 04/18/18 10:19 Pulse 67 04/18/18 10:19 Resp 18 04/18/18 10:19 BP 147/34 H 04/18/18 10:19 Pulse Ox 99 04/18/18 10:19 - Orders/Labs/Meds Orders: Active Orders 24 hr Category Date Time Status EKG Documentation Completion [RC] ASDIRECTED Care 04/18/18 10:37 Active EKG 12 Lead [EK] Urgent Ther 04/18/18 10:36 Ordered Labs: Laboratory Tests 04/18/18 04/18/18 04/18/18 Range/Units 10:42 10:42 10:42 WBC 7.5 (4.5-11.0) K/uL RBC 4.23 L (4.30-5.90) M/uL Hgb 12.6 (12.0-15.0) g/dL Hct 38.5 L (40.0-54.0) % MCV 91 (80-98) fL MCH 30 (27-31) pg MCHC 33 (32-36) % Plt Count 253 (150-400) K/uL Neut % (Auto) 63 (36-66) % Lymph % (Auto) 23 L (24-44) % [place] % (Auto) 10 H (2-6) % Eos % (Auto) 4 (2-4) % Baso % (Auto) 0 (0-1) % D-Dimer, Quantitative (0.0-400.0) ng/mL Sodium 139 L (140-148) mmol/L Potassium 4.8 (3.6-5.2) mmol/L Chloride 103 (100-108) mmol/L Carbon Dioxide 30 (21-32) mmol/L Anion Gap 10.8 (5.0-14.0) mmol/L BUN 29 H (7-18) mg/dL Creatinine 1.5 H (0.8-1.3) mg/dL Est Cr Clr Drug Dosing 33.57 mL/min Estimated GFR (MDRD) 44 L (>60) Glucose 84 (74-106) mg/dL Lactic Acid 1.3 (0.4-2.0) mmol/L Calcium 8.8 (8.5-10.1) mg/dL Total Bilirubin 0.4 (0.2-1.0) mg/dL AST 20 (15-37) U/L ALT 15 (12-78) U/L Alkaline Phosphatase 46 (46-116) U/L Troponin I 0.072 H* (0.000-0.056) ng/mL C-Reactive Protein 0.17 (0.0-0.3) mg/dL Total Protein 6.5 (6.4-8.2) g/dL Albumin 3.0 L (3.4-5.0) g/dL Globulin 3.5 (2.3-3.5) g/dL Albumin/Globulin Ratio 0.9 L (1.2-2.2) TSH, Ultra Sensitive 2.020 (0.358-3.740) uIU/mL Urine Color Urine Appearance Urine pH (4.5-8.0) Ur Specific [place] (1.008-1.030) Urine Protein (NEGATIVE) mg/dL Urine Glucose (UA) (NEGATIVE) mg/dL Urine Ketones (NEGATIVE) mg/dL Urine Occult Blood (NEGATIVE) Urine Nitrite (NEGAITVE) Urine Bilirubin (NEGATIVE) Urine Urobilinogen (NORMAL) mg/dL Ur Leukocyte Esterase (NEGATIVE) Urine RBC (0-5) Urine WBC (0-5) Ur Epithelial Cells Amorphous Sediment Urine Bacteria Urine Mucus 04/18/18 04/18/18 Range/Units 11:16 11:46 WBC (4.5-11.0) K/uL RBC (4.30-5.90) M/uL Hgb (12.0-15.0) g/dL Hct (40.0-54.0) % MCV (80-98) fL MCH (27-31) pg MCHC (32-36) % Plt Count (150-400) K/uL Neut % (Auto) (36-66) % Lymph % (Auto) (24-44) % [place] % (Auto) (2-6) % Eos % (Auto) (2-4) % Baso % (Auto) (0-1) % D-Dimer, Quantitative 556 H (0.0-400.0) ng/mL Sodium (140-148) mmol/L Potassium (3.6-5.2) mmol/L Chloride (100-108) mmol/L Carbon Dioxide (21-32) mmol/L Anion Gap (5.0-14.0) mmol/L BUN (7-18) mg/dL Creatinine (0.8-1.3) mg/dL Est Cr Clr Drug Dosing mL/min Estimated GFR (MDRD) (>60) Glucose (74-106) mg/dL Lactic Acid (0.4-2.0) mmol/L Calcium (8.5-10.1) mg/dL Total Bilirubin (0.2-1.0) mg/dL AST (15-37) U/L ALT (12-78) U/L Alkaline Phosphatase (46-116) U/L Troponin I (0.000-0.056) ng/mL C-Reactive Protein (0.0-0.3) mg/dL Total Protein (6.4-8.2) g/dL Albumin (3.4-5.0) g/dL Globulin (2.3-3.5) g/dL Albumin/Globulin Ratio (1.2-2.2) TSH, Ultra Sensitive (0.358-3.740) uIU/mL Urine Color Yellow Urine Appearance Clear Urine pH 5.0 (4.5-8.0) Ur Specific [place] 1.010 (1.008-1.030) Urine Protein Negative (NEGATIVE) mg/dL Urine Glucose (UA) Normal (NEGATIVE) mg/dL Urine Ketones Negative (NEGATIVE) mg/dL Urine Occult Blood Large (NEGATIVE) Urine Nitrite Negative (NEGAITVE) Urine Bilirubin Negative (NEGATIVE) Urine Urobilinogen Normal (NORMAL) mg/dL Ur Leukocyte Esterase Negative (NEGATIVE) Urine RBC 5-10 H (0-5) Urine WBC 0-5 (0-5) Ur Epithelial Cells Few Amorphous Sediment Not seen Urine Bacteria Not seen Urine Mucus Not seen Departure - Departure Time of Disposition: 12:30 Disposition: Home, Self-Care 01 Condition: Fair Clinical Impression: Weakness - Discharge Information Referrals: PCP,None [Primary Care Provider] - Forms: ED Department Discharge Additional Instructions: Restart your losartan tomorrow evening, continue with regular medications, Please followup with your primary care provider in 3-5 days if not better, please call return to the emergency department with worsening of symptoms. - My Orders Last 24 Hours: My Active Orders 04/18/18 10:36 EKG 12 Lead [EK] Urgent 04/18/18 10:37 EKG Documentation Completion [RC] ASDIRECTED - Assessment/Plan Last 24 Hours: My Active Orders 04/18/18 10:36 EKG 12 Lead [EK] Urgent 04/18/18 10:37 EKG Documentation Completion [RC] ASDIRECTED Plan: Assessment Acuity = acute Site and laterality = weakness complicated in a gentleman known history coronary artery disease Etiology = unclear etiology Manifestations = none Location of injury = Home Lab values = CBC unremarkable creatinine elevated 1.5 consistent with chronic renal failure stage G IIIB, troponin mildly elevated 0.072 of uncertain significance and d-dimer mildly elevated at 556 again of uncertain significance , EKG demonstrates paced rhythm chest x-ray shows no acute process Plan I did review lab work EKG results with him offered hospitalization for further evaluation they declined I did review old records his d-dimer is similar to d- dimer elevation and the first of the month when this lab work was repeated after admission at [facility] his troponin was within normal limits. He is going to try moving his losartan to evening dose instead of morning dose and follow-up with primary care in 3-5 days for reevaluation This note was dictated using [employer] voice recognition software please call with any questions on syntax or grammar.
--- NOTE | 2018-04-18 11:38 | CR ---
CHEST: 2 view CLINICAL HISTORY:Weakness COMPARISON:03/22/2018 FINDINGS: Heart size and pulmonary vascularity are normal. There are atherosclerotic changes in the aorta. There has been previous sternotomy. There are multiple fractured sternal sutures. Patient has a permanent cardiac pacer. No infiltrate, effusion or pneumothorax is seen.. Impression: No acute cardiopulmonary process Prior sternotomy Chronic cardiac pacer
[2018-04-18 13:20] VITALS: BP 109/55
== END 2018-04-18 13:00 | disposition home or self-care (01) ==
LOC: JP.ED 10:15
DX: R53.1 Weakness (principal); I25.10 Atherosclerotic heart disease of native coronary artery without angina pectoris; Z95.1 Presence of aortocoronary bypass graft; Z95.5 Presence of coronary angioplasty implant and graft; Z87.891 Personal history of nicotine dependence; Z79.82 Long term (current) use of aspirin; Z88.1 Allergy status to other antibiotic agents
CPT/HCPCS: 36415; 71046; 71046-26; 80053; 81001; 83605; 84443; 84484; 85025; 85379; 86140; 93005; 99285-25

== ENCOUNTER 2018-08-05 10:39 | Emergency (ER) | payer MEDICARE, BC ==
--- NOTE | 2018-08-05 11:08 | EDM.PDOC ---
ED HPI GENERAL MEDICAL PROBLEM - General Chief Complaint: General Stated Complaint: MEDICAL VIA [facility] Time Seen by Provider: 08/05/18 10:50 Source of Information: Reports: Patient, Old Records, RN History Limitations: Reports: No Limitations - History of Present Illness INITIAL COMMENTS - FREE TEXT/NARRATIVE: 87 yo male that lives with his son got dizzy as he was getting out of his bed today and nearly fell. He describes the room spinning. He did not have nausea or diaphoresis. Sx's are gone on arrival to the ER via EMS. He had a similar spell about 3 weeks ago that was associated with a fall, but no injuries. He was not seen medically after that spell. He denies nausea, vomiting, diarrhea, bleeding or black stools. No recent fever. No chest pain. Is followed by Dr. Triana of [facility], [place], for known CAD. He did take all his morning meds already today. Onset: Today Onset Date: 08/05/18 Onset Time: 09:15 Duration: Minutes:, Resolved Prior to Arrival Location: Reports: Head, Generalized Quality: Reports: Other (vertigo, no pain) Severity: Moderate (unable to walk during spell.) Improves with: Reports: Other (time) Worsens with: Reports: Other (uncertain) Context: Reports: Other (see HPI) Associated Symptoms: Reports: Confusion (? mild, transient), Weakness. Denies: Chest Pain, Diaphoresis, Fever/Chills, Headaches, Nausea/Vomiting, Seizure, Shortness of Breath Treatments [employer]: Reports: Other (see below) (none) - Related Data Allergies Allergy/AdvReac Type Severity Reaction Status Date / Time amoxicillin Allergy Cannot Verified 06/30/18 12:26 Remember Home Meds: Home Meds Simvastatin [Zocor] 40 mg PO BEDTIME 05/09/14 [History] Acetaminophen [Tylenol] 2 tab PO Q4H PRN 06/30/18 [History] Cholecalciferol (Vitamin D3) [Vitamin D3] 1 tab PO DAILY 06/30/18 [History] Clopidogrel Bisulfate [Clopidogrel] 75 mg PO DAILY 06/30/18 [History] Famotidine 1 tab PO DAILY 06/30/18 [History] Metoprolol Tartrate 12.5 mg PO BID 06/30/18 [History] Nitroglycerin [Nitrostat] 1 tab SL ASDIRECTED 06/30/18 [History] Meclizine [Antivert] 25 mg PO Q6H PRN #30 tab 08/05/18 [Rx] Metoprolol Succinate 50 mg PO BEDTIME #30 tab.er.24h 08/05/18 [Rx] Past Medical History HEENT History: Reports: Allergic Rhinitis, Cataract, Hard of Hearing, Impaired Vision Cardiovascular History: Reports: Blood Clots/VTE/DVT, Bypass, CAD, High Cholesterol, Hypertension, [place], Pacemaker, Stents Gastrointestinal History: Reports: GERD Other Gastrointestinal History: colitis Genitourinary History: Reports: Renal Calculus Musculoskeletal History: Reports: Other (See Below) Other Musculoskeletal History: bursitis left - Infectious Disease History Infectious Disease History: Reports: Shingles - Past Surgical History Head Surgeries/Procedures: Reports: None HEENT Surgical History: Reports: Cataract Surgery, Tonsillectomy Cardiovascular Surgical History: Reports: Coronary Artery Bypass, Coronary Artery Stent GI Surgical History: Reports: Appendectomy Male Surgical History: Reports: None Musculoskeletal Surgical History: Reports: Carpal Tunnel Social & Family History - Family History Family Medical History: Noncontributory - Tobacco Use Smoking Status *Q: Never Smoker - Caffeine Use Caffeine Use: Reports: Coffee - Recreational Drug Use Recreational Drug Use: No ED ROS GENERAL - Review of Systems Review Of Systems: See Below Constitutional: Reports: Weakness HEENT: Reports: Vertigo Respiratory: Reports: No Symptoms Cardiovascular: Reports: No Symptoms Endocrine: Reports: No Symptoms GI/Abdominal: Reports: No Symptoms : Reports: No Symptoms Musculoskeletal: Reports: No Symptoms Skin: Reports: No Symptoms Neurological: Reports: Dizziness, Difficulty Walking, Gait Disturbance. Denies : Seizure, Syncope, Trouble Speaking Psychiatric: Reports: No Symptoms ED EXAM, GENERAL - Physical Exam Exam: See Below Exam Limited By: No Limitations General Appearance: Alert, WD/WN, No Apparent Distress Eye Exam: Bilateral Eye: Normal Inspection, Other (no nystagmus) Ears: Normal External Exam, Normal Canal, Hearing Grossly Normal, Normal TMs Ear Exam: Bilateral Ear: Auricle Normal, Canal Normal, TM normal Nose: Normal Inspection, Normal Mucosa, No Blood Throat/Mouth: Normal Inspection, Normal Lips, Normal Oropharynx, Normal Voice, No Airway Compromise Head: Atraumatic, Normocephalic Neck: Normal Inspection Respiratory/Chest: No Respiratory Distress, Lungs Clear, Normal Breath Sounds, No Accessory Muscle Use Cardiovascular: Regular Rate, Rhythm, No Edema GI/Abdominal: Normal Bowel Sounds, Soft, Non-Tender, No Distention Back Exam: Normal Inspection. No: CVA Tenderness (R), CVA Tenderness (L) Extremities: Normal Inspection, Normal Range of Motion, Non-Tender, Pedal Edema (trace pitting edema to both LE's below the knees) Neurological: Alert, Oriented, CN II-XII Intact, Normal Cognition, No Motor/ Sensory Deficits Psychiatric: Normal Affect, Normal Mood Skin Exam: Warm, Dry, Intact, Normal Color, No Rash Lymphatic: No Adenopathy EKG INTERPRETATION EKG Date: 08/05/18 Time: 12:00 Rhythm: NSR Rate (Beats/Min): 73 [place]: Normal P-Wave: Present QRS: Normal ST-T: Normal QT: Normal Comparison: No Change Course - Vital Signs Text/Narrative:: Case discussed with Dr. Caruso of [facility] @ 1420h Last Recorded V/S: Last Vital Signs Temp 35.5 C 08/05/18 10:46 Pulse 67 08/05/18 14:09 Resp 20 08/05/18 12:13 BP 167/83 H 08/05/18 16:41 Pulse Ox 98 08/05/18 12:13 Orthostatic Blood Pressure [ 145/66 Standing] Orthostatic Blood Pressure [ 140/61 Sitting] Orthostatic Blood Pressure [ 144/67 Supine] - Orders/Labs/Meds Orders: Active Orders 24 hr Category Date Time Status Cardiac Monitoring [RC] .As Directed Care 08/05/18 11:02 Active EKG Documentation Completion [RC] ASDIRECTED Care 08/05/18 11:42 Active Orthostatic Vital Signs [RC] ASDIRECTED Care 08/05/18 11:02 Active Sodium Chloride 0.9% [Saline Flush] Med 08/05/18 11:42 Active 10 ml FLUSH ASDIRECTED PRN Saline Lock Insert [OM.PC] Routine Oth 08/05/18 11:42 Ordered EKG 12 Lead [EK] Routine Ther 08/05/18 11:42 Ordered Medication Orders Sodium Chloride (Saline Flush) 10 ml FLUSH ASDIRECTED PRN PRN Reason: Keep Vein Open Last Admin: 08/05/18 12:07 Dose: 10 ml Admin: 08/05/18 11:51 Dose: 10 ml Labs: Laboratory Tests 08/05/18 08/05/18 08/05/18 Range/Units 11:15 11:15 11:24 WBC 6.5 (4.5-11.0) K/uL RBC 4.32 (4.30-5.90) M/uL Hgb 12.6 (12.0-15.0) g/dL Hct 38.7 L (40.0-54.0) % MCV 90 (80-98) fL MCH 29 (27-31) pg MCHC 33 (32-36) % Plt Count 226 (150-400) K/uL Sodium 138 L (140-148) mmol/L Potassium 5.2 (3.6-5.2) mmol/L Chloride 102 (100-108) mmol/L Carbon Dioxide 27 (21-32) mmol/L Anion Gap 14.2 H (5.0-14.0) mmol/L BUN 30 H (7-18) mg/dL Creatinine 1.4 H (0.8-1.3) mg/dL Est Cr Clr Drug Dosing 40.54 mL/min Estimated GFR (MDRD) 48 L (>60) Glucose 97 (74-106) mg/dL Calcium 9.4 (8.5-10.1) mg/dL Troponin I 0.171 H* (0.000-0.056) ng/mL Urine Color Yellow Urine Appearance Clear Urine pH 5.0 (4.5-8.0) Ur Specific [place] 1.010 (1.008-1.030) Urine Protein Negative (NEGATIVE) mg/dL Urine Glucose (UA) Normal (NEGATIVE) mg/dL Urine Ketones Negative (NEGATIVE) mg/dL Urine Occult Blood Moderate (NEGATIVE) Urine Nitrite Negative (NEGAITVE) Urine Bilirubin Negative (NEGATIVE) Urine Urobilinogen Normal (NORMAL) mg/dL Ur Leukocyte Esterase Negative (NEGATIVE) Urine RBC 0-5 (0-5) Urine WBC 0-5 (0-5) Ur Epithelial Cells Rare Amorphous Sediment Not seen Urine Bacteria Not seen Urine Mucus Not seen 08/05/18 Range/Units 14:45 WBC (4.5-11.0) K/uL RBC (4.30-5.90) M/uL Hgb (12.0-15.0) g/dL Hct (40.0-54.0) % MCV (80-98) fL MCH (27-31) pg MCHC (32-36) % Plt Count (150-400) K/uL Sodium (140-148) mmol/L Potassium (3.6-5.2) mmol/L Chloride (100-108) mmol/L Carbon Dioxide (21-32) mmol/L Anion Gap (5.0-14.0) mmol/L BUN (7-18) mg/dL Creatinine (0.8-1.3) mg/dL Est Cr Clr Drug Dosing mL/min Estimated GFR (MDRD) (>60) Glucose (74-106) mg/dL Calcium (8.5-10.1) mg/dL Troponin I 0.164 H* (0.000-0.056) ng/mL Urine Color Urine Appearance Urine pH (4.5-8.0) Ur Specific [place] (1.008-1.030) Urine Protein (NEGATIVE) mg/dL Urine Glucose (UA) (NEGATIVE) mg/dL Urine Ketones (NEGATIVE) mg/dL Urine Occult Blood (NEGATIVE) Urine Nitrite (NEGAITVE) Urine Bilirubin (NEGATIVE) Urine Urobilinogen (NORMAL) mg/dL Ur Leukocyte Esterase (NEGATIVE) Urine RBC (0-5) Urine WBC (0-5) Ur Epithelial Cells Amorphous Sediment Urine Bacteria Urine Mucus Meds: Medications Generic Name Dose Route Start Last Admin Trade Name Wilian PRN Reason Stop Dose Admin Sodium Chloride 10 ml 08/05/18 11:42 08/05/18 12:07 Saline Flush FLUSH 10 ml ASDIRECTED PRN Administration Keep Vein Open Discontinued Medications Generic Name Dose Route Start Last Admin Trade Name Wilian PRN Reason Stop Dose Admin Aspirin 324 mg 08/05/18 11:43 08/05/18 11:48 Aspirin PO 08/05/18 11:44 324 mg ONETIME ONE Administration Meclizine HCl 25 mg 08/05/18 11:14 08/05/18 11:19 Antivert PO 08/05/18 11:15 25 mg ONETIME ONE Administration Metoprolol Tartrate 25 mg 08/05/18 11:43 08/05/18 11:48 Lopressor PO 08/05/18 11:44 25 mg ONETIME ONE Administration Departure - Departure Time of Disposition: 16:50 Disposition: Home, Self-Care 01 Condition: Fair Clinical Impression: Elevated troponin, Vertigo - Discharge Information *PRESCRIPTION DRUG MONITORING PROGRAM REVIEWED*: No *COPY OF PRESCRIPTION DRUG MONITORING REPORT IN PATIENT JARROD: No Prescriptions: Meclizine [Antivert] 25 mg PO Q6H PRN #30 tab PRN Reason: Dizziness Metoprolol Succinate 50 mg PO BEDTIME #30 tab.er.24h Instructions: Vertigo, [id number] Referrals: PCP,None [Primary Care Provider] - Forms: ED Department Discharge Additional Instructions: Use meclizine as needed for vertigo symptoms. Stop your twice daily metoprolol tartrate and start metoprolol succinate 50 mg at bedtime, first dose tonight. Recheck with your doctor next week. Return if worse. - My Orders Last 24 Hours: My Active Orders 08/05/18 11:02 Cardiac Monitoring [RC] .As Directed Orthostatic Vital Signs [RC] ASDIRECTED 08/05/18 11:42 EKG Documentation Completion [RC] ASDIRECTED Sodium Chloride 0.9% [Saline Flush] 10 ml FLUSH ASDIRECTED PRN Saline Lock Insert [OM.PC] Routine EKG 12 Lead [EK] Routine - Assessment/Plan Last 24 Hours: My Active Orders 08/05/18 11:02 Cardiac Monitoring [RC] .As Directed Orthostatic Vital Signs [RC] ASDIRECTED 08/05/18 11:42 EKG Documentation Completion [RC] ASDIRECTED Sodium Chloride 0.9% [Saline Flush] 10 ml FLUSH ASDIRECTED PRN Saline Lock Insert [OM.PC] Routine EKG 12 Lead [EK] Routine
[2018-08-05] MEDS ORDERED: Meclizine 25 MG Tab PO ONE (11:14)
[2018-08-05] MEDS ORDERED: Aspirin 81 MG Tab.Chew PO ONE (11:43)
[2018-08-05] MEDS ORDERED: Metoprolol Tartrate 25 MG Tab PO ONE (11:43)
[2018-08-05] MEDS: Sodium Chloride 0.9% 10 ML Syringe FLUSH PRN ×2 (11:51→12:07)
[2018-08-05 16:42] VITALS: BP 167/83
== END 2018-08-05 17:00 | disposition home or self-care (01) ==
LOC: JP.ED 10:39
DX: R42 Dizziness and giddiness (principal); R79.89 Other specified abnormal findings of blood chemistry; Z88.1 Allergy status to other antibiotic agents; Z79.899 Other long term (current) drug therapy
CPT/HCPCS: 36415; 80048; 81001; 84484; 85027; 93005; 99284; A9270

== ENCOUNTER 2018-09-22 15:17 | Emergency (ER) | payer MEDICARE, BC ==
[2018-09-22 15:28] VITALS: BP 161/78
--- NOTE | 2018-09-22 17:46 | EDM.PDOC ---
ED HPI GENERAL MEDICAL PROBLEM - General Chief Complaint: Genitourinary Problem Stated Complaint: BLOOD IN URINE Time Seen by Provider: 09/22/18 16:27 Source of Information: Reports: Patient, Family History Limitations: Reports: No Limitations - History of Present Illness INITIAL COMMENTS - FREE TEXT/NARRATIVE: This gentleman is here for urinary bleeding. This been going on just for one day. This is the third time in 3 or 4 months. He does take [place]'s because he had some type of a intracardiac clot several months ago. He had stents and a pacemaker also. He thinks he had quite a bit of blood. He said it was probably about [id number] blood. He denies any difficulty emptying his bladder but has a little bit of burning on urination. There's no other bleeding. He's not having any dizziness. There's been no fever - Related Data Allergies Allergy/AdvReac Type Severity Reaction Status Date / Time amoxicillin Allergy Cannot Verified 06/30/18 12:26 Remember Home Meds: Home Meds Simvastatin [Zocor] 40 mg PO BEDTIME 05/09/14 [History] Acetaminophen [Tylenol] 2 tab PO Q4H PRN 06/30/18 [History] Cholecalciferol (Vitamin D3) [Vitamin D3] 1 tab PO DAILY 06/30/18 [History] Clopidogrel Bisulfate [Clopidogrel] 75 mg PO DAILY 06/30/18 [History] Famotidine 1 tab PO DAILY 06/30/18 [History] Metoprolol Tartrate 12.5 mg PO BID 06/30/18 [History] Nitroglycerin [Nitrostat] 1 tab SL ASDIRECTED 06/30/18 [History] Meclizine [Antivert] 25 mg PO Q6H PRN #30 tab 08/05/18 [Rx] Metoprolol Succinate 50 mg PO BEDTIME #30 tab.er.24h 08/05/18 [Rx] Past Medical History HEENT History: Reports: Allergic Rhinitis, Cataract, Hard of Hearing, Impaired Vision Cardiovascular History: Reports: Blood Clots/VTE/DVT, Bypass, CAD, High Cholesterol, Hypertension, [place], Pacemaker, Stents Gastrointestinal History: Reports: GERD Other Gastrointestinal History: colitis Genitourinary History: Reports: Renal Calculus Musculoskeletal History: Reports: Other (See Below) Other Musculoskeletal History: bursitis left - Infectious Disease History Infectious Disease History: Reports: Shingles - Past Surgical History Head Surgeries/Procedures: Reports: None HEENT Surgical History: Reports: Cataract Surgery, Tonsillectomy Cardiovascular Surgical History: Reports: Coronary Artery Bypass, Coronary Artery Stent GI Surgical History: Reports: Appendectomy Male Surgical History: Reports: None Musculoskeletal Surgical History: Reports: Carpal Tunnel Social & Family History - Family History Family Medical History: Noncontributory - Tobacco Use Smoking Status *Q: Never Smoker - Caffeine Use Caffeine Use: Reports: Coffee - Recreational Drug Use Recreational Drug Use: No ED ROS GENERAL - Review of Systems Review Of Systems: See Below Constitutional: Reports: No Symptoms HEENT: Reports: No Symptoms Respiratory: Reports: No Symptoms Cardiovascular: Reports: No Symptoms Endocrine: Reports: No Symptoms GI/Abdominal: Reports: No Symptoms : Reports: Hematuria ED EXAM, RENAL/ - Physical Exam Exam: See Below Exam Limited By: No Limitations General Appearance: Alert, WD/WN, No Apparent Distress Eye Exam: Bilateral Eye: Normal Inspection Respiratory/Chest: Lungs Clear Cardiovascular: Regular Rate, Rhythm GI/Abdominal: Soft, Non-Tender, Other (Bladder not distended) Extremities: Normal Inspection Neurological: Alert, Normal Cognition Course - Vital Signs Last Recorded V/S: Last Vital Signs Temp 36.2 C 09/22/18 15:27 Pulse 83 09/22/18 15:27 Resp 18 09/22/18 15:27 BP 161/78 H 09/22/18 15:27 Pulse Ox - Orders/Labs/Meds Labs: Laboratory Tests 09/22/18 Range/Units 16:36 Urine Color Brown Urine Appearance Cloudy Urine pH 5.0 (4.5-8.0) Ur Specific [place] 1.020 (1.008-1.030) Urine Protein 30 H (NEGATIVE) mg/dL Urine Glucose (UA) Normal (NEGATIVE) mg/dL Urine Ketones Negative (NEGATIVE) mg/dL Urine Occult Blood Large (NEGATIVE) Urine Nitrite Positive H (NEGAITVE) Urine Bilirubin Negative (NEGATIVE) Urine Urobilinogen Normal (NORMAL) mg/dL Ur Leukocyte Esterase Large (NEGATIVE) Urine RBC Semi-packed H (0-5) Urine WBC Semi-packed H (0-5) Ur Epithelial Cells Few Amorphous Sediment Not seen Urine Bacteria Many Urine Mucus Not seen Departure - Departure Time of Disposition: 17:44 Disposition: Home, Self-Care 01 Condition: Fair Clinical Impression: Hemorrhagic cystitis - Discharge Information Referrals: Heraclio Dye MD [Primary Care Provider] - Additional Instructions: There is a urinary tract infection that is causing the bleeding. He should take the antibiotic Bactrim DS one tablet twice daily for 1 week. There will be some medication left over. The bleeding should stop within the next day or 2. See your Dr[address] or return to the ER for any problems. Continue taking the blood thinner. A culture was done on the urine just in case the antibiotic doesn't work.
== END 2018-09-22 17:56 | disposition home or self-care (01) ==
LOC: JP.ED 15:17
DX: N30.91 Cystitis, unspecified with hematuria (principal); E78.00 Pure hypercholesterolemia, unspecified; K21.9 Gastro-esophageal reflux disease without esophagitis; Z79.899 Other long term (current) drug therapy; Z88.0 Allergy status to penicillin
CPT/HCPCS: 81001; 87086; 87088; 87186; 99283

== ENCOUNTER 2019-04-13 09:37 | Emergency (ER) | payer BC, MEDICARE, OTHER ==
[2019-04-13] MEDS ORDERED: Sodium Chloride 0.9% 10 ML Syringe FLUSH PRN (10:02)
[2019-04-13] MEDS ORDERED: Nitroglycerin 0.4 MG Tab.SL SL PRN (10:04)
[2019-04-13] MEDS ORDERED: Sodium Chloride 0.9% 1,000 ML IV ONE (10:18)
--- NOTE | 2019-04-13 10:37 | CRLCR ---
INDICATION: Pain. COMPARISON: 04/18/2018. TECHNIQUE: Single view of the chest. FINDINGS: Multiple fractured median sternotomy wires are similar to prior exam. Left chest wall pacemaker leads are unchanged in position. Cardiac lead overlies the chest. Cardiac silhouette size is within normal limits. Aorta is tortuous with atherosclerotic calcification, similar to prior. No new focal lung consolidation, pleural effusion or pneumothorax. Degenerative changes again noted in the imaged osseous structures. IMPRESSION: No acute cardiopulmonary abnormality. Dictated by Mor Boyer MD @ Apr 13 2019 10:32AM Signed by Dr. Mor Boyer @ Apr 13 2019 10:34AM
[2019-04-13] MEDS ORDERED: Aspirin 81 MG Tab.Chew PO ONE (11:08)
[2019-04-13 11:19] VITALS: BP 118/56; PULSE 67
--- NOTE | 2019-04-13 11:24 | EDM.PDOC ---
ED HPI GENERAL MEDICAL PROBLEM - General Chief Complaint: Chest Pain Stated Complaint: weak Time Seen by Provider: 04/13/19 10:02 Source of Information: Reports: Patient, Family History Limitations: Reports: Other (a little psychomotor slowing limits history somewhat) - History of Present Illness INITIAL COMMENTS - FREE TEXT/NARRATIVE: This man comes in complaining of left pre-cordial chest pain. Began yesterday while weeding the garden but has persisted. Just a little bit now. Dull pain at rest hurts to move and to breathe deeply. Took all his meds this am. Saw doc in [place] recently about pacer and Eliquis. Neither patient nor son know a great deal about his condition. Left Lower Chest Pain Score (Numeric/FACES): 4 - Related Data Allergies Allergy/AdvReac Type Severity Reaction Status Date / Time amoxicillin Allergy Cannot Verified 06/30/18 12:26 Remember Home Meds: Home Meds Simvastatin [Zocor] 40 mg PO BEDTIME 05/09/14 [History] Acetaminophen [Tylenol] 2 tab PO Q4H PRN 06/30/18 [History] Cholecalciferol (Vitamin D3) [Vitamin D3] 1 tab PO DAILY 06/30/18 [History] Clopidogrel Bisulfate [Clopidogrel] 75 mg PO DAILY 06/30/18 [History] Famotidine 1 tab PO DAILY 06/30/18 [History] Metoprolol Tartrate 12.5 mg PO BID 06/30/18 [History] Nitroglycerin [Nitrostat] 1 tab SL ASDIRECTED 06/30/18 [History] Meclizine [Antivert] 25 mg PO Q6H PRN #30 tab 08/05/18 [Rx] Metoprolol Succinate 50 mg PO BEDTIME #30 tab.er.24h 08/05/18 [Rx] Past Medical History HEENT History: Reports: Allergic Rhinitis, Cataract, Hard of Hearing, Impaired Vision Cardiovascular History: Reports: Blood Clots/VTE/DVT, Bypass, CAD, High Cholesterol, Hypertension, [place], Pacemaker, Stents Gastrointestinal History: Reports: GERD Other Gastrointestinal History: colitis Genitourinary History: Reports: Renal Calculus Musculoskeletal History: Reports: Other (See Below) Other Musculoskeletal History: bursitis left - Infectious Disease History Infectious Disease History: Reports: Chicken Pox, Measles, Mumps - Past Surgical History Head Surgeries/Procedures: Reports: None HEENT Surgical History: Reports: Cataract Surgery, Tonsillectomy Cardiovascular Surgical History: Reports: Coronary Artery Bypass, Coronary Artery Stent GI Surgical History: Reports: Appendectomy Male Surgical History: Reports: None Musculoskeletal Surgical History: Reports: Carpal Tunnel Social & Family History - Family History Family Medical History: Noncontributory - Tobacco Use Smoking Status *Q: Never Smoker - Caffeine Use Caffeine Use: Reports: Soda - Recreational Drug Use Recreational Drug Use: No ED ROS GENERAL - Review of Systems Review Of Systems: See Below Constitutional: Reports: Weakness, Decreased Appetite HEENT: Reports: No Symptoms Respiratory: Reports: Pleuritic Chest Pain Cardiovascular: Reports: Chest Pain Endocrine: Reports: Fatigue GI/Abdominal: Reports: No Symptoms : Reports: No Symptoms Musculoskeletal: Reports: No Symptoms Skin: Reports: No Symptoms Neurological: Reports: No Symptoms Psychiatric: Reports: No Symptoms ED EXAM, GENERAL - Physical Exam Exam: See Below Exam Limited By: No Limitations General Appearance: Alert, WD/WN, No Apparent Distress, Other (a little [id number] slowing) Eye Exam: Bilateral Eye: Normal Inspection Throat/Mouth: Normal Oropharynx Head: Atraumatic Neck: Normal Inspection Respiratory/Chest: Lungs Clear, Other (mild left pectoral tenderness) Cardiovascular: Normal Peripheral Pulses, Regular Rate, Rhythm, No Murmur GI/Abdominal: Normal Bowel Sounds, Soft, Non-Tender Extremities: Normal Inspection Neurological: Alert, CN II-XII Intact, No Motor/Sensory Deficits, Other (see above) Skin Exam: Warm, Dry Course - Vital Signs Last Recorded V/S: Last Vital Signs Temp 35.1 C L 04/13/19 09:40 Pulse 61 04/13/19 10:50 Resp 19 04/13/19 10:50 BP 116/53 L 04/13/19 10:50 Pulse Ox 97 04/13/19 10:50 - Orders/Labs/Meds Orders: Active Orders 24 hr Category Date Time Status EKG Documentation Completion [RC] ASDIRECTED Care 04/13/19 10:03 Active UA W/MICROSCOPIC [URIN] Urgent Lab 04/13/19 10:02 Ordered Nitroglycerin [Nitrostat] Med 04/13/19 10:04 Active 0.4 mg SL Q5M PRN Sodium Chloride 0.9% [Normal Saline] 1,000 ml Med 04/13/19 10:18 Active IV .BOLUS Sodium Chloride 0.9% [Saline Flush] Med 04/13/19 10:02 Active 10 ml FLUSH ASDIRECTED PRN Saline Lock Insert [OM.PC] Urgent Oth 04/13/19 10:02 Ordered EKG 12 Lead [EK] Urgent Ther 04/13/19 10:03 Ordered Medication Orders Sodium Chloride (Normal Saline) 1,000 mls @ 999 mls/hr IV .BOLUS ONE Stop: 04/13/19 11:18 Last Admin: 04/13/19 10:23 Dose: 999 mls/hr Nitroglycerin (Nitrostat) 0.4 mg SL Q5M PRN PRN Reason: Chest Pain Last Admin: 04/13/19 10:09 Dose: 0.4 mg Sodium Chloride (Saline Flush) 10 ml FLUSH ASDIRECTED PRN PRN Reason: Keep Vein Open Last Admin: 04/13/19 10:22 Dose: 10 ml Labs: Laboratory Tests 04/13/19 04/13/19 04/13/19 Range/Units 10:29 10:29 10:29 WBC 7.5 (4.5-11.0) K/uL RBC 4.06 L (4.30-5.90) M/uL Hgb 12.1 (12.0-15.0) g/dL Hct 37.3 L (40.0-54.0) % MCV 92 (80-98) fL MCH 30 (27-31) pg MCHC 32 (32-36) % Plt Count 278 (150-400) K/uL Neut % (Auto) 69 H (36-66) % Lymph % (Auto) 18 L (24-44) % [place] % (Auto) 8 H (2-6) % Eos % (Auto) 5 H (2-4) % Baso % (Auto) 1 (0-1) % Sodium 139 L (140-148) mmol/L Potassium 4.3 (3.6-5.2) mmol/L Chloride 106 (100-108) mmol/L Carbon Dioxide 29 (21-32) mmol/L Anion Gap 8.3 (5.0-14.0) mmol/L BUN 39 H (7-18) mg/dL Creatinine 1.7 H (0.8-1.3) mg/dL Est Cr Clr Drug Dosing 30.04 mL/min Estimated GFR (MDRD) 38 L (>60) Glucose 110 H (74-106) mg/dL Calcium 9.0 (8.5-10.1) mg/dL Total Bilirubin 0.9 (0.2-1.0) mg/dL AST 21 (15-37) U/L ALT 13 (12-78) U/L Alkaline Phosphatase 47 (46-116) U/L Troponin I 0.085 H* (0.000-0.056) ng/mL Total Protein 6.8 (6.4-8.2) g/dL Albumin 3.4 (3.4-5.0) g/dL Globulin 3.4 (2.3-3.5) g/dL Albumin/Globulin Ratio 1.0 L (1.2-2.2) Meds: Medications Generic Name Dose Route Start Last Admin Trade Name Freq PRN Reason Stop Dose Admin Sodium Chloride 1,000 mls @ 999 mls/hr 04/13/19 10:18 04/13/19 10:23 Normal Saline IV 04/13/19 11:18 999 mls/hr .BOLUS ONE Administration Nitroglycerin 0.4 mg 04/13/19 10:04 04/13/19 10:09 Nitrostat SL 0.4 mg Q5M PRN Administration Chest Pain Sodium Chloride 10 ml 04/13/19 10:02 04/13/19 10:22 Saline Flush FLUSH 10 ml ASDIRECTED PRN Administration Keep Vein Open Discontinued Medications Generic Name Dose Route Start Last Admin Trade Name Freq PRN Reason Stop Dose Admin Aspirin 324 mg 04/13/19 11:08 Aspirin PO 04/13/19 11:09 ONETIME ONE - Re-Assessments/Exams Free Text/Narrative Re-Assessment/Exam: 04/13/19 11:26 EKG shows atrial-paced rhythm., No definite ST or T change Because of ongoing mild pain he received 1 sl NTG but this dropped pressure into 70's. Quickly came back into 100's with small amt IV NS and positioning. Troponin noted. Discussed with hospitalist Dr Burgess and dressed poultry grader at [place] and he was accepted for telemetry. Gave ASA 324 mg po 04/13/19 11:30 Departure - Departure Time of Disposition: 11:29 Disposition: DC/Tfer to Acute Hospital 02 Reason for Transfer *Q: Primary PCI Indicated Condition: Fair Clinical Impression: Non-STEMI (non-ST elevated myocardial infarction) Referrals: Heraclio Dye MD [Primary Care Provider] - - My Orders Last 24 Hours: My Active Orders 04/13/19 10:02 UA W/MICROSCOPIC [URIN] Urgent Sodium Chloride 0.9% [Saline Flush] 10 ml FLUSH ASDIRECTED PRN Saline Lock Insert [OM.PC] Urgent 04/13/19 10:03 EKG Documentation Completion [RC] ASDIRECTED EKG 12 Lead [EK] Urgent 04/13/19 10:04 Nitroglycerin [Nitrostat] 0.4 mg SL Q5M PRN 04/13/19 10:18 Sodium Chloride 0.9% [Normal Saline] 1,000 ml IV .BOLUS - Assessment/Plan Last 24 Hours: My Active Orders 04/13/19 10:02 UA W/MICROSCOPIC [URIN] Urgent Sodium Chloride 0.9% [Saline Flush] 10 ml FLUSH ASDIRECTED PRN Saline Lock Insert [OM.PC] Urgent 04/13/19 10:03 EKG Documentation Completion [RC] ASDIRECTED EKG 12 Lead [EK] Urgent 04/13/19 10:04 Nitroglycerin [Nitrostat] 0.4 mg SL Q5M PRN 04/13/19 10:18 Sodium Chloride 0.9% [Normal Saline] 1,000 ml IV .BOLUS
== END 2019-04-13 12:31 ==
LOC: JP.ED 09:37
DX: I21.4 Non-ST elevation (NSTEMI) myocardial infarction (principal); I10 Essential (primary) hypertension; I25.10 Atherosclerotic heart disease of native coronary artery without angina pectoris; I25.2 Old myocardial infarction; E78.00 Pure hypercholesterolemia, unspecified; K21.9 Gastro-esophageal reflux disease without esophagitis; Z86.718 Personal history of other venous thrombosis and embolism; Z90.49 Acquired absence of other specified parts of digestive tract; Z88.1 Allergy status to other antibiotic agents; Z79.899 Other long term (current) drug therapy
CPT/HCPCS: 36415; 71045; 80053; 81001; 84484; 85025; 93005; 96360; 99284; 99285; A9270; J7030

== ENCOUNTER 2019-04-22 18:54 | Observation (INO) | payer MEDICARE, BC ==
[2019-04-22] MEDS ORDERED: Sodium Chloride 0.9% 10 ML Syringe FLUSH PRN (19:00)
--- NOTE | 2019-04-22 19:07 | EDM.PDOC ---
ED HPI GENERAL MEDICAL PROBLEM - General Chief Complaint: Chest Pain Stated Complaint: CHEST PAINS Time Seen by Provider: 04/22/19 19:00 Source of Information: Reports: EMS History Limitations: Reports: Altered Mental Status - History of Present Illness INITIAL COMMENTS - FREE TEXT/NARRATIVE: Lorenzo is an 88 year old male who presents to the ED today via EMS with c/o chest pain. Family called paramedics. Patient arrives here disoriented, c/o pain and pointing to groin region, feels warm, productive cough with course lung sounds. Patient unsure of date/time, uncertain baseline mentation status, EMS reports family was less than forthcoming with this. Patient mildly tachypneic on arrival. No rashes, no trauma. Initial EKG negative for any acute ischemic findings. Onset: Unknown/Unsure groin Pain Score (Numeric/FACES): 5 - Related Data Allergies Allergy/AdvReac Type Severity Reaction Status Date / Time amoxicillin Allergy Cannot Verified 04/22/19 18:59 Remember Home Meds: Home Meds Simvastatin [Zocor] 40 mg PO BEDTIME 05/09/14 [History] Acetaminophen [Tylenol] 2 tab PO Q4H PRN 06/30/18 [History] Cholecalciferol (Vitamin D3) [Vitamin D3] 1 tab PO DAILY 06/30/18 [History] Clopidogrel Bisulfate [Clopidogrel] 75 mg PO DAILY 06/30/18 [History] Famotidine 1 tab PO DAILY 06/30/18 [History] Nitroglycerin [Nitrostat] 1 tab SL ASDIRECTED 06/30/18 [History] Apixaban [Eliquis] 5 mg PO BID 04/22/19 [History] Metoprolol Succinate 50 mg PO DAILY 04/22/19 [History] Past Medical History HEENT History: Reports: Allergic Rhinitis, Cataract, Hard of Hearing, Impaired Vision Cardiovascular History: Reports: Blood Clots/VTE/DVT, Bypass, CAD, High Cholesterol, Hypertension, [place], Pacemaker, Stents Gastrointestinal History: Reports: GERD Other Gastrointestinal History: colitis Genitourinary History: Reports: Renal Calculus Musculoskeletal History: Reports: Other (See Below) Other Musculoskeletal History: bursitis left - Infectious Disease History Infectious Disease History: Reports: Chicken Pox, Measles, Mumps - Past Surgical History Head Surgeries/Procedures: Reports: None HEENT Surgical History: Reports: Cataract Surgery, Tonsillectomy Cardiovascular Surgical History: Reports: Coronary Artery Bypass, Coronary Artery Stent GI Surgical History: Reports: Appendectomy Male Surgical History: Reports: None Musculoskeletal Surgical History: Reports: Carpal Tunnel Social & Family History - Family History Family Medical History: Noncontributory - Caffeine Use Caffeine Use: Reports: Soda ED ROS GENERAL - Review of Systems Review Of Systems: Unable To Obtain ED EXAM, GENERAL - Physical Exam Exam: See Below Exam Limited By: Altered Mental Status General Appearance: Alert, No Apparent Distress, Other (Warm to touch) Eye Exam: Bilateral Eye: EOMI, PERRL Ears: Normal External Exam Respiratory/Chest: No Accessory Muscle Use, Rhonchi (Right upper and middle lobes), Other (Mildly tachypneic ) Cardiovascular: Regular Rate, Rhythm, No Murmur GI/Abdominal: Normal Bowel Sounds, Soft, Non-Tender Extremities: No Pedal Edema Neurological: Alert, Confused Psychiatric: Normal Affect Skin Exam: Intact, Normal Color, No Rash Lymphatic: No Adenopathy EKG INTERPRETATION EKG Date: 04/22/19 Time: 19:00 Rhythm: NSR [place]: Normal P-Wave: Present QRS: Normal ST-T: Normal QT: Normal Comparison: No Change Course - Vital Signs Last Recorded V/S: Last Vital Signs Temp 37.6 C 04/22/19 20:12 Pulse 79 04/22/19 20:40 Resp 18 04/22/19 20:40 BP 181/81 H 04/22/19 20:40 Pulse Ox 96 04/22/19 20:40 Lorenzo is an 88 year old male who presents to the ED today via EMS. Patient was recently discharged from [facility] after being transferred there on the of this month from our facility with c/o chest pain. Patient had an angiogram done there and son reports that his current stents are about 40% occluded and that there was no plan for intervention at this time until they are at least 70%. Patient does have a pacemaker he is on Eliquis. Patient was doing fine until around noon today when he started to again c/o chest pain and around noon became acute confused. Patient arrives here c/o leg, arm and groin pain, knows his name, unaware of location time and date, son states this is very unusual. Concerns for sepsis, patient feels warm, no fever here, not tachycardia but beta juan may be preventing this. Patient is normotensive, but pressure is soft. Rhonchi on exam, xray obtained to rule out pneumonia, negative for infiltrate, effusion. UA negative for infection. CBC returns with normal white count, 74% neutrophils, HGB 10.4, CRP mildly elevated at 0.88. BUN of 22 with a creatinine of 1.4. Lactic acid high end of normal at 2. Troponin of 0.106. UA negative. CT of head obtained secondary to confusion and is negative for any acute intracranial findings. I discussed patient's troponin with Dr. Middleton, rubber goods finisher from [facility], agrees that this could certainly be from recent angiogram but does recommend serial troponin's. It is unclear at this time what is causing patient 's confusion. He may have a viral illness, this could still be infectious although no source at this time. Will plan to bring patient in to the hospital for ongoing monitoring and serial troponin's. I discussed patient's case with Dr. Chambers, hospitalist, she has accepted patient for admission. Patient and son updated on plan of care and are agreeable. - Orders/Labs/Meds Orders: Active Orders 24 hr Category Date Time Status EKG Documentation Completion [RC] ASDIRECTED Care 04/22/19 19:03 Active Peripheral IV Care [RC] . DIRECTED Care 04/22/19 19:00 Active CULTURE BLOOD [BC] Urgent Lab 04/22/19 19:05 Received CULTURE BLOOD [BC] Urgent Lab 04/22/19 19:10 Received CULTURE URINE [] Stat Lab 04/22/19 20:57 Received Sodium Chloride 0.9% [Normal Saline] 1,000 ml Med 04/22/19 19:15 Active IV ASDIRECTED Sodium Chloride 0.9% [Saline Flush] Med 04/22/19 19:00 Active 10 ml FLUSH ASDIRECTED PRN Blood Culture x2 Reflex Set [OM.PC] Urgent Oth 04/22/19 19:01 Ordered Peripheral IV Insertion Adult [OM.PC] Routine Oth 04/22/19 19:00 Ordered EKG 12 Lead [EK] Stat Ther 04/22/19 19:03 Ordered Medication Orders Sodium Chloride (Normal Saline) 1,000 mls @ 125 mls/hr IV ASDIRECTED SERA Last Admin: 04/22/19 19:10 Dose: 125 mls/hr Sodium Chloride (Saline Flush) 10 ml FLUSH ASDIRECTED PRN PRN Reason: Keep Vein Open Last Admin: 04/22/19 19:10 Dose: 10 ml Labs: Laboratory Tests 04/22/19 04/22/19 04/22/19 Range/Units 19:22 19:22 19:22 WBC 7.7 (4.5-11.0) K/uL RBC 3.59 L (4.30-5.90) M/uL Hgb 10.8 L (12.0-15.0) g/dL Hct 32.9 L (40.0-54.0) % MCV 92 (80-98) fL MCH 30 (27-31) pg MCHC 33 (32-36) % Plt Count 232 (150-400) K/uL Neut % (Auto) 74 H (36-66) % Lymph % (Auto) 16 L (24-44) % [place] % (Auto) 8 H (2-6) % Eos % (Auto) 2 (2-4) % Baso % (Auto) 0 (0-1) % Sodium 135 L (140-148) mmol/L Potassium 4.0 (3.6-5.2) mmol/L Chloride 101 (100-108) mmol/L Carbon Dioxide 25 (21-32) mmol/L Anion Gap 13.0 (5.0-14.0) mmol/L BUN 22 H (7-18) mg/dL Creatinine 1.4 H (0.8-1.3) mg/dL Est Cr Clr Drug Dosing 40.03 mL/min Estimated GFR (MDRD) 48 L (>60) Glucose 89 (74-106) mg/dL Lactic Acid 2.0 (0.4-2.0) mmol/L Calcium 8.6 (8.5-10.1) mg/dL Total Bilirubin 1.2 H (0.2-1.0) mg/dL AST 18 (15-37) U/L ALT 12 (12-78) U/L Alkaline Phosphatase 43 L (46-116) U/L Troponin I (0.000-0.056) ng/mL C-Reactive Protein 0.88 H (0.0-0.3) mg/dL Total Protein 6.4 (6.4-8.2) g/dL Albumin 3.1 L (3.4-5.0) g/dL Globulin 3.3 (2.3-3.5) g/dL Albumin/Globulin Ratio 0.9 L (1.2-2.2) Urine Color (YELLOW) Urine Appearance (CLEAR) Urine pH (5.0-8.0) Ur Specific [place] (1.008-1.030) Urine Protein (NEGATIVE) mg/dL Urine Glucose (UA) (NEGATIVE) mg/dL Urine Ketones (NEGATIVE) mg/dL Urine Occult Blood (NEGATIVE) Urine Nitrite (NEGATIVE) Urine Bilirubin (NEGATIVE) Urine Urobilinogen (0.2-1.0) EU/dL Ur Leukocyte Esterase (NEGATIVE) Urine RBC (0-5) Urine WBC (0-5) Ur Epithelial Cells Amorphous Sediment Urine Bacteria Urine Mucus 04/22/19 04/22/19 Range/Units 19:22 19:45 WBC (4.5-11.0) K/uL RBC (4.30-5.90) M/uL Hgb (12.0-15.0) g/dL Hct (40.0-54.0) % MCV (80-98) fL MCH (27-31) pg MCHC (32-36) % Plt Count (150-400) K/uL Neut % (Auto) (36-66) % Lymph % (Auto) (24-44) % [place] % (Auto) (2-6) % Eos % (Auto) (2-4) % Baso % (Auto) (0-1) % Sodium (140-148) mmol/L Potassium (3.6-5.2) mmol/L Chloride (100-108) mmol/L Carbon Dioxide (21-32) mmol/L Anion Gap (5.0-14.0) mmol/L BUN (7-18) mg/dL Creatinine (0.8-1.3) mg/dL Est Cr Clr Drug Dosing mL/min Estimated GFR (MDRD) (>60) Glucose (74-106) mg/dL Lactic Acid (0.4-2.0) mmol/L Calcium (8.5-10.1) mg/dL Total Bilirubin (0.2-1.0) mg/dL AST (15-37) U/L ALT (12-78) U/L Alkaline Phosphatase (46-116) U/L Troponin I 0.106 H* (0.000-0.056) ng/mL C-Reactive Protein (0.0-0.3) mg/dL Total Protein (6.4-8.2) g/dL Albumin (3.4-5.0) g/dL Globulin (2.3-3.5) g/dL Albumin/Globulin Ratio (1.2-2.2) Urine Color Yellow (YELLOW) Urine Appearance Clear (CLEAR) Urine pH 7.5 (5.0-8.0) Ur Specific [place] 1.020 (1.008-1.030) Urine Protein Negative (NEGATIVE) mg/dL Urine Glucose (UA) Normal (NEGATIVE) mg/dL Urine Ketones Negative (NEGATIVE) mg/dL Urine Occult Blood Moderate (NEGATIVE) Urine Nitrite Negative (NEGATIVE) Urine Bilirubin Negative (NEGATIVE) Urine Urobilinogen 1.0 (0.2-1.0) EU/dL Ur Leukocyte Esterase Negative (NEGATIVE) Urine RBC 5-10 H (0-5) Urine WBC Not seen (0-5) Ur Epithelial Cells Not seen Amorphous Sediment Not seen Urine Bacteria Rare Urine Mucus Not seen Meds: Medications Generic Name Dose Route Start Last Admin Trade Name Freq PRN Reason Stop Dose Admin Sodium Chloride 1,000 mls @ 125 mls/hr 04/22/19 19:15 04/22/19 19:10 Normal Saline IV 125 mls/hr ASDIRECTED SERA Administration Sodium Chloride 10 ml 04/22/19 19:00 04/22/19 19:10 Saline Flush FLUSH 10 ml ASDIRECTED PRN Administration Keep Vein Open Discontinued Medications Generic Name Dose Route Start Last Admin Trade Name Freq PRN Reason Stop Dose Admin Lorazepam 0.5 mg 04/22/19 20:04 04/22/19 20:11 Ativan IVPUSH 04/22/19 20:05 0.5 mg ONETIME ONE Administration Departure - Departure Time of Disposition: 22:00 Disposition: Admitted As Inpatient 66 Condition: Fair Clinical Impression: Elevated troponin I level, Confusion - Discharge Information Referrals: PCP,None [Primary Care Provider] - Forms: ED Department Discharge - My Orders Last 24 Hours: My Active Orders 04/22/19 19:00 Peripheral IV Care [RC] . DIRECTED Sodium Chloride 0.9% [Saline Flush] 10 ml FLUSH ASDIRECTED PRN Peripheral IV Insertion Adult [OM.PC] Routine 04/22/19 19:01 Blood Culture x2 Reflex Set [OM.PC] Urgent 04/22/19 19:03 EKG Documentation Completion [RC] ASDIRECTED EKG 12 Lead [EK] Stat 04/22/19 19:05 CULTURE BLOOD [BC] Urgent 04/22/19 19:10 CULTURE BLOOD [BC] Urgent 04/22/19 19:15 Sodium Chloride 0.9% [Normal Saline] 1,000 ml IV ASDIRECTED 04/22/19 20:57 CULTURE URINE [RM] Stat - Assessment/Plan Last 24 Hours: My Active Orders 04/22/19 19:00 Peripheral IV Care [RC] . DIRECTED Sodium Chloride 0.9% [Saline Flush] 10 ml FLUSH ASDIRECTED PRN Peripheral IV Insertion Adult [OM.PC] Routine 04/22/19 19:01 Blood Culture x2 Reflex Set [OM.PC] Urgent 04/22/19 19:03 EKG Documentation Completion [RC] ASDIRECTED EKG 12 Lead [EK] Stat 04/22/19 19:05 CULTURE BLOOD [BC] Urgent 04/22/19 19:10 CULTURE BLOOD [BC] Urgent 04/22/19 19:15 Sodium Chloride 0.9% [Normal Saline] 1,000 ml IV ASDIRECTED 04/22/19 20:57 CULTURE URINE [RM] Stat
[2019-04-22] MEDS: Sodium Chloride 0.9% 1,000 ML IV SCH ×2 (19:10→23:10)
--- NOTE | 2019-04-22 19:42 | CRLCR ---
Indication: Cough and fever Technique: Chest 1 view Comparison: April 13, 2019 Findings/Impression: Normal cardiac size. Postoperative changes of a median sternotomy. Dual lead left-sided pacemaker appears intact and unchanged in position. Normal pulmonary vasculature. Minimal linear atelectasis or scarring at both lung bases, unchanged. No focal infiltrate, effusion, or pneumothorax. No acute osseous abnormality. Dictated by Jazmyen Ceron MD @ Apr 22 2019 7:40PM Signed by Dr. Jazmyne Ceron @ Apr 22 2019 7:41PM
[2019-04-22] MEDS ORDERED: LORazepam 2 MG/ML SDV IVPUSH ONE (20:04)
--- NOTE | 2019-04-22 20:52 | CRLCT ---
INDICATION: 88 year-old male. Acute confusion. TECHNIQUE: Noncontrast head CT. COMPARISON: None. FINDINGS: There is no evidence for acute intracranial hemorrhage or hydrocephalus and no mass effect or shift of midline structures. Advanced cerebral and cerebellar atrophy appropriate for the patient`s age. Bifrontal atrophy fairly symmetric. No definite subdural hematoma. Dense calcification within the midline falx. Cavum septum pellucidum which is a normal anatomic variant. Intracranial vascular calcifications. Mucosal thickening and partial to complete opacification of numerous ethmoid sinuses and both nasal passages incompletely visualized. The temporomandibular joints are symmetric and intact. The included mastoid air cells are clear. IMPRESSION: 1. Advanced chronic age related changes intracranially. No acute intracranial process identified. 2. Partial to complete opacification of numerous ethmoid sinuses and both nasal passages. Please note that all CT scans at this facility use dose modulation, iterative reconstruction, and/or weight-based dosing when appropriate to reduce radiation dose to as low as reasonably achievable. Dictated by Miguel Stock MD @ Apr 22 2019 8:47PM Signed by Dr. Miguel Stock @ Apr 22 2019 8:50PM
[2019-04-22] MEDS ORDERED: Acetaminophen 325 MG Tab PO PRN ×2 (22:20→22:21)
[2019-04-22] MEDS ORDERED: LORazepam 2 MG/ML SDV IVPUSH PRN (22:29)
[2019-04-22] MEDS ORDERED: cefTRIAXone 1 GM in Sodium Chloride 0.9% 50 ML IV SCH (22:30)
[2019-04-22] MEDS ORDERED: Nitroglycerin 0.4 MG Tab.SL SL SCH (22:30)
--- NOTE | 2019-04-23 01:10 | HP ---
HISTORY OF PRESENT ILLNESS: The patient is an 88-year-old male with past medical history of coronary artery disease requiring stent placed, who was recently seen this week for chest pain, where it was determined by cath that he had a blockage in his stent. He was treated at [facility] and found to be clear to go home and was discharged on Tuesday. Today, the patient developed acute confusion at approximately 1:00 p.m. His son says it may have started last night, but acutely worsened this afternoon at approximately 1:00 p.m., and he decided to bring him to the emergency room. He said he was making no sense and was incoherent. He said that he was making statements of being in considerable pain, that he was having pain shooting up and down his legs, up into his head; he did not know where he was; he did not understand what was going on. The son said he was concerned and brought him to the hospital. While in the emergency room, his troponins were checked again and showed a mild elevation, which is likely due to the recent cath performed at [place]. A CRP, CBC, CMP, UA, blood cultures, lactate, and EKG, all were performed, all with no substantial findings or potential cause of acute confusion. A CT scan of the head was also found to be negative. When I examined the patient in the hospital, he is still acutely confused, knowing only his name and that he is in the hospital. He cannot tell me his date. He can identify that his son is in the room with him. He says he is no longer in pain, and he feels well, but does understand that he is confused and acknowledges this, and says that he does not want to go home at this time knowing that he is confused. As the patient has no acute complaints other than that he does not know anything other than person and place, he cannot identify the time of day, the year or any other pertinent information, we will admit him to observation. PHYSICAL EXAMINATION: HEENT: The patient's head is atraumatic. Eyes are within normal limits, pupils are equal and reactive to light. Ears are within normal limits, tympanic membranes are normal. Oropharynx; mouth is normal. There is no erythema, exudates, or plaques or patches. NECK: There is no JVD. No lymphadenopathy. No swelling or tenderness. No bruits present. HEART: The patient has S1, S2. There are no murmurs, rubs, or thrills. Regular rate and rhythm. LUNGS: Clear to auscultation bilaterally. No wheezes, rales, or rhonchi. ABDOMEN: Soft and nontender with bowel sounds normal and present in all 4 quadrants. MUSCULOSKELETAL: The patient has intact strength in all 4 extremities, 5/5. NEUROLOGIC: Sensation is intact in all 4 extremities and equal bilaterally. The patient is alert. The patient is oriented only to person and place. The patient does not know date, times, or situation. ASSESSMENT: The patient has acute confusion secondary to possibly infection or transient ischemic attack. PLAN: We will continue to admit to observation for up to [address] Monsivais, who will be assuming the patient's care in the morning. Resume his home meds. For hypertension, metoprolol succinate 50 mg p.o. daily; GERD, famotidine 20 mg p.o. daily; coronary artery disease, simvastatin 40 mg p.o. at bedtime, apixaban 5 mg p.o. b.i.d., clopidogrel 75 mg p.o. daily, and nitroglycerin p.r.n. for chest pain. We will start Rocephin 1 g daily and clindamycin 300 mg IV q.12 hours to treat for possible infection. Blood cultures have already been drawn, but as the patient is allergic to amoxicillin, Zosyn is contraindicated in this patient, so we will go for other broad-spectrum antibiotics. We will continue Ativan 0.5 mg as needed for agitation and confusion. Jayla Chambers D.O. /[id number]
[2019-04-23] MEDS ORDERED: Non-Formulary Medication 1 Each (Clopidogrel Bisulfate [Clopidogrel] 75 MG) PO SCH (09:00)
[2019-04-23] MEDS ORDERED: FAMOTIDINE PO SCH (09:00)
[2019-04-23] MEDS ORDERED: Non-Formulary Medication 1 Each (Metoprolol Succinate [Metoprolol Succinate] 50 MG) PO SCH (09:00)
[2019-04-23] MEDS ORDERED: Non-Formulary Medication 1 Each (Apixaban [Eliquis] 5 MG) PO SCH (09:00)
[2019-04-23] MEDS ORDERED: Non-Formulary Medication 1 Each (Cholecalciferol (Vitamin D3) [Vitamin D3] 1 TAB) PO SCH (09:00)
[2019-04-23] MEDS ORDERED: Metoprolol Succinate 50 MG Tab.ER PO SCH (09:30)
[2019-04-23] MEDS: FAMOTIDINE 20 MG PO SCH (12:00)
[2019-04-23] MEDS: CHOLECALCIFEROL 25 MCG PO SCH (12:00)
[2019-04-23] MEDS: Clopidogrel 75 MG Tab**POM PO SCH (12:00)
[2019-04-23] MEDS: APIXABAN 5 MG PO SCH ×2 (12:00→20:19)
[2019-04-23] MEDS ORDERED: Haloperidol 1 MG Tab PO PRN (13:31)
[2019-04-23] MEDS ORDERED: SIMVASTATIN 80 MG PO SCH (21:00)
[2019-04-23] MEDS ORDERED: Simvastatin 20 MG Tab PO SCH (21:00)
[2019-04-23] MEDS ORDERED: Melatonin 3 MG Tab PO SCH (21:00)
[2019-04-23] MEDS ORDERED: Non-Formulary Medication 1 Each (Simvastatin [Zocor] 40 MG) PO SCH (21:00)
[2019-04-24 07:14] VITALS: BP 108/81; PULSE 79
[2019-04-24] MEDS: APIXABAN 5 MG PO SCH (08:40)
[2019-04-24] MEDS: CHOLECALCIFEROL 25 MCG PO SCH (08:42)
[2019-04-24] MEDS: FAMOTIDINE 20 MG PO SCH (08:42)
[2019-04-24] MEDS: Clopidogrel 75 MG Tab**POM PO SCH (08:42)
[2019-04-24] MEDS ORDERED: METOPROLOL SUCCINATE 100 MG PO SCH (09:00)
--- NOTE | 2019-04-24 10:21 | PCM.PN ---
- General Info Date of Service: 04/23/19 Subjective Update: Mr. Jones was admitted yesterday for weakness and confusion. He's had a recent history of cardiac evaluation of his coronary artery disease with angiogram. Yesterday was noted to be very weak and confused at home. There is a history of progression cognitive impairment noted by family over the past several months. This morning his alert and interactive, mildly to moderately confused. No specific etiology has been identified to explain recent increase in confusion. Functional Status: Reports: Tolerating Diet, Ambulating, Urinating - Review of Systems General: Reports: Weakness. Denies: Fever, Chills Pulmonary: Reports: No Symptoms Cardiovascular: Reports: No Symptoms Gastrointestinal: Reports: No Symptoms Psychiatric: Reports: Confusion - Patient Data Vitals - Most Recent: Last Vital Signs Temp 98 F 04/24/19 07:12 Pulse 79 04/24/19 07:12 Resp 16 04/24/19 07:12 BP 108/81 04/24/19 07:12 Pulse Ox 92 L 04/24/19 07:12 Weight - Most Recent: 191 lb 3.205 oz I&O - Last 24 Hours: Intake & Output 04/23/19 04/24/19 04/24/19 22:59 06:59 14:59 Intake Total 355 480 Balance 355 480 Zeyad Results Last 24 Hours: Microbiology 04/22/19 20:57 Urine Culture - Preliminary Urine, Clean Catch NO GROWTH AFTER 1 DAY 04/22/19 19:05 Aerobic Blood Culture - Preliminary Blood - Arm, Right NO GROWTH AFTER 1 DAY Anaerobic Blood Culture - Preliminary NO GROWTH AFTER 1 DAY 04/22/19 19:10 Aerobic Blood Culture - Preliminary Blood - Arm, Right NO GROWTH AFTER 1 DAY Anaerobic Blood Culture - Preliminary NO GROWTH AFTER 1 DAY Med Orders - Current: Current Medications Acetaminophen (Tylenol) 650 mg PO Q4H PRN PRN Reason: pain, fever Apixaban (Eliquis) 5 mg PO BID [facility] Last Admin: 04/24/19 08:40 Dose: 5 mg Cholecalciferol (Vitamin D3) 25 mcg PO DAILY [facility] Last Admin: 04/24/19 08:42 Dose: 25 mcg Clopidogrel Bisulfate (Plavix) 75 mg PO DAILY [facility] Last Admin: 04/24/19 08:42 Dose: 75 mg Famotidine (Pepcid) 20 mg PO DAILY [facility] Last Admin: 04/24/19 08:42 Dose: 20 mg Haloperidol (Haldol) 1 mg PO Q2H PRN PRN Reason: Agitation Melatonin (Melatonin) 9 mg PO BEDTIME [facility] Last Admin: 04/23/19 20:19 Dose: 9 mg Nitroglycerin (Nitrostat) 0.4 mg SL ASDIRECTED [facility] Simvastatin (Zocor) (80mgPom) 0 mg PO BEDTIME [facility] Last Admin: 04/23/19 20:19 Dose: 40 mg Metoprolol Succinate (Toprol Xl) 100mg Pom 0 mg PO DAILY [facility] Last Admin: 04/24/19 08:41 Dose: 50 mg Sodium Chloride (Saline Flush) 10 ml FLUSH ASDIRECTED PRN PRN Reason: Keep Vein Open Last Admin: 04/22/19 19:10 Dose: 10 ml Discontinued Medications Acetaminophen (Tylenol) 650 mg PO Q4H PRN PRN Reason: Pain Sodium Chloride (Normal Saline) 1,000 mls @ 125 mls/hr IV ASDIRECTED [facility] Last Admin: 04/22/19 23:10 Dose: 125 mls/hr Ceftriaxone Sodium 1 gm/ (Sodium Chloride) 50 mls @ 100 mls/hr IV Q24H [facility] Last Admin: 04/22/19 23:09 Dose: 100 mls/hr Clindamycin Phosphate 300 mg/ (Sodium Chloride) 52 mls @ 150 mls/hr IV Q12H [facility] Last Admin: 04/23/19 00:44 Dose: 150 mls/hr Clindamycin Phosphate 300 mg/ (Sodium Chloride) 52 mls @ 104 mls/hr IV Q12H [facility] Last Admin: 04/23/19 12:31 Dose: 104 mls/hr Lorazepam (Ativan) 0.5 mg IVPUSH ONETIME ONE Stop: 04/22/19 20:05 Last Admin: 04/22/19 20:11 Dose: 0.5 mg Lorazepam (Ativan) 0.5 mg IVPUSH Q6H PRN PRN Reason: Agitation - Exam Quality Assessment: DVT Prophylaxis General: Alert, Cooperative, No Acute Distress. No: Oriented Lungs: Clear to Auscultation, Normal Respiratory Effort Cardiovascular: Regular Rate, Regular Rhythm, No Murmurs GI/Abdominal Exam: Soft, Non-Tender, No Organomegaly, No Distention Extremities: Non-Tender, No Pedal Edema - Problem List & Annotations (1) Dementia SNOMED Code(s): 62517649 Code(s): F03.90 - UNSPECIFIED DEMENTIA WITHOUT BEHAVIORAL DISTURBANCE Status: Acute Current Visit: Yes (2) CAD (coronary artery disease) SNOMED Code(s): 64647551 Code(s): I25.10 - ATHSCL HEART DISEASE OF [place] CORONARY ARTERY W/O ANG PCTRS Status: Acute Current Visit: Yes (3) Weakness SNOMED Code(s): 45107374 Code(s): R53.1 - WEAKNESS Status: Acute Current Visit: Yes (4) Elevated troponin I level SNOMED Code(s): 711046710 Code(s): R74.8 - ABNORMAL LEVELS OF OTHER SERUM ENZYMES Status: Acute Current Visit: Yes (5) Confusion SNOMED Code(s): 157580801 Code(s): R41.0 - DISORIENTATION, UNSPECIFIED Status: Acute Current Visit : Yes - Problem List Review Problem List Initiated/Reviewed/Updated: Yes - My Orders Last 24 Hours: My Active Orders 04/23/19 13:31 Haloperidol [Haldol] 1 mg PO Q2H PRN 04/23/19 21:00 Melatonin 9 mg PO BEDTIME 04/24/19 10:14 Ready for Discharge [RC] PER UNIT ROUTINE - Plan Plan:: ASSESSMENT AND PLAN DEMENTIA-history of progressive cognitive decline as well as weakness over the past several months. Acute exacerbation the other day, no specific etiology identified. No new medication to explain confusion, significant metabolic abnormalities, or evidence of infection. -Consider outpatient neuropsych eval CORONARY ARTERY DISEASE-recent evaluation with angiogram, some recurrent stenosis but not severe enough to require intervention at this time -Continue outpatient medical therapy ELEVATED TROPONIN-likely secondary to underlying chronic kidney disease as well as stress confusion. No evidence of acute myocardial infarction at this time. MAINTENANCE ISSUES -DVT prophylaxis; current therapy with Eliquis should provide adequate DVT prophylaxis -GI prophylaxis; continue outpatient H2 juan therapy -Rodriguez catheter; not indicated -Nutrition; heart healthy diet not required -Nicotine dependence; CODE STATUS-FULL CODE ADMISSION STATUS-patient will be admitted to inpatient status, expect at least a 2 night hospital stay for evaluation and management of problems as outlined above. At the time of this admission I do not reasonably expected evaluation and management of this problem will require more than a 96 hour hospital stay. DISPOSITION-anticipate discharge to home after the hospital stay. PRIMARY CARE PROVIDER-Dr. Dye
--- NOTE | 2019-04-24 10:31 | PCM.DCSUM1 ---
Discharge Summary - Hospital Course Brief History: Mr. Jones is an 88-year-old gentleman who was admitted to observation status for further evaluation of increased confusion and weakness. - Discharge Data Discharge Date: 04/24/19 Discharge Disposition: Home, W Home Health Agency 06 Condition: Fair - Referral to Home Health Date of Face to Face Encounter: 04/24/19 Reason for Homebound Status: Weakness, dementia Primary Care Physician: PCP None Skilled Need: Weakness - Discharge Diagnosis/Problem(s) (1) Dementia SNOMED Code(s): 06024020 ICD Code: F03.90 - UNSPECIFIED DEMENTIA WITHOUT BEHAVIORAL DISTURBANCE Status: Acute Current Visit: Yes (2) CAD (coronary artery disease) SNOMED Code(s): 29001803 ICD Code: I25.10 - ATHSCL HEART DISEASE OF [place] CORONARY ARTERY W/O ANG PCTRS Status: Acute Current Visit: Yes (3) Weakness SNOMED Code(s): 14200523 ICD Code: R53.1 - WEAKNESS Status: Acute Current Visit: Yes (4) Elevated troponin I level SNOMED Code(s): 460861093 ICD Code: R74.8 - ABNORMAL LEVELS OF OTHER SERUM ENZYMES Status: Acute Current Visit: Yes (5) Confusion SNOMED Code(s): 716993455 ICD Code: R41.0 - DISORIENTATION, UNSPECIFIED Status: Acute Current Visit : Yes - Patient Summary/Data Hospital Course: Mr. Jones is an 88-year-old gentleman who was admitted through the emergency department to observation status with increased weakness and confusion. He has a recent history of cardiac evaluation with coronary angiogram. Apparently was told at the time of angiogram that he did have some recurrent stenosis but it was not severe enough to require intervention at this time. Family does report a history of progressive cognitive impairment and weakness over the past several months. On evaluation in the emergency department there was no evidence of significant metabolic abnormality, infection, or medication effect to explain the confusion and increased weakness. He was found to have a mild elevation in troponin level, this was felt to be secondary to his underlying chronic kidney disease as well as stress of increased confusion and agitation. On admission serial troponin levels were obtained and did not increase significantly during his hospital stay. On the morning following admission energy level and improved and he was able to walk with standby assistance. He remained mildly to moderately confused, but not agitated. He was monitored an additional 24 hours with no significant change in confusion or weakness. No other factors were identified is to underlying cause and it was felt very likely that his progressive weakness and confusion it is secondary to dementia. Follow-up appointment will be scheduled with his primary care provider within one week. Consider further evaluation of dementia with outpatient neuro psych eval. Activity will be as tolerated and he will resume his usual heart healthy diet. Family is considering use of home care including home physical therapy and occupational therapy. - Patient Instructions Diet: Heart Healthy Diet Activity: As Tolerated Other/Special Instructions: Please schedule follow-up appointment with primary care provider within one week. Please arrange for home care with home physical therapy and occupational therapy after discharge. - Discharge Plan *PRESCRIPTION DRUG MONITORING PROGRAM REVIEWED*: Not Applicable *COPY OF PRESCRIPTION DRUG MONITORING REPORT IN PATIENT JARROD: Not Applicable Home Medications: Home Meds Simvastatin [Zocor] 40 mg PO BEDTIME 05/09/14 [History] Acetaminophen [Tylenol] 2 tab PO Q4H PRN 06/30/18 [History] Cholecalciferol (Vitamin D3) [Vitamin D3] 1 tab PO DAILY 06/30/18 [History] Clopidogrel Bisulfate [Clopidogrel] 75 mg PO DAILY 06/30/18 [History] Famotidine 20 mg PO DAILY 06/30/18 [History] Nitroglycerin [Nitrostat] 1 tab SL ASDIRECTED 06/30/18 [History] Apixaban [Eliquis] 5 mg PO BID 04/22/19 [History] Metoprolol Succinate 50 mg PO DAILY 04/22/19 [History] Referrals: Heraclio Dye MD [Physician] - 04/30/19 1:40 pm (Please arrive 15 minutes early to register for your appointment.) - Discharge Summary/Plan Comment DC Time >30 min.: No - Patient Data Vitals - Most Recent: Last Vital Signs Temp 98 F 04/24/19 07:12 Pulse 79 04/24/19 07:12 Resp 16 04/24/19 07:12 BP 108/81 04/24/19 07:12 Pulse Ox 92 L 04/24/19 07:12 Weight - Most Recent: 191 lb 3.205 oz I&O - Last 24 hours: Intake & Output 04/23/19 04/24/19 04/24/19 22:59 06:59 14:59 Intake Total 355 480 Balance 355 480 REMI Results - Last 24 hrs: Microbiology 04/22/19 20:57 Urine Culture - Preliminary Urine, Clean Catch NO GROWTH AFTER 1 DAY 04/22/19 19:05 Aerobic Blood Culture - Preliminary Blood - Arm, Right NO GROWTH AFTER 1 DAY Anaerobic Blood Culture - Preliminary NO GROWTH AFTER 1 DAY 04/22/19 19:10 Aerobic Blood Culture - Preliminary Blood - Arm, Right NO GROWTH AFTER 1 DAY Anaerobic Blood Culture - Preliminary NO GROWTH AFTER 1 DAY Med Orders - Current: Current Medications Acetaminophen (Tylenol) 650 mg PO Q4H PRN PRN Reason: pain, fever Apixaban (Eliquis) 5 mg PO BID [facility] Last Admin: 04/24/19 08:40 Dose: 5 mg Cholecalciferol (Vitamin D3) 25 mcg PO DAILY [facility] Last Admin: 04/24/19 08:42 Dose: 25 mcg Clopidogrel Bisulfate (Plavix) 75 mg PO DAILY [facility] Last Admin: 04/24/19 08:42 Dose: 75 mg Famotidine (Pepcid) 20 mg PO DAILY [facility] Last Admin: 04/24/19 08:42 Dose: 20 mg Haloperidol (Haldol) 1 mg PO Q2H PRN PRN Reason: Agitation Melatonin (Melatonin) 9 mg PO BEDTIME [facility] Last Admin: 04/23/19 20:19 Dose: 9 mg Nitroglycerin (Nitrostat) 0.4 mg SL ASDIRECTED [facility] Simvastatin (Zocor) (80mgPom) 0 mg PO BEDTIME [facility] Last Admin: 04/23/19 20:19 Dose: 40 mg Metoprolol Succinate (Toprol Xl) 100mg Pom 0 mg PO DAILY [facility] Last Admin: 04/24/19 08:41 Dose: 50 mg Sodium Chloride (Saline Flush) 10 ml FLUSH ASDIRECTED PRN PRN Reason: Keep Vein Open Last Admin: 04/22/19 19:10 Dose: 10 ml Discontinued Medications Acetaminophen (Tylenol) 650 mg PO Q4H PRN PRN Reason: Pain Sodium Chloride (Normal Saline) 1,000 mls @ 125 mls/hr IV ASDIRECTED [facility] Last Admin: 04/22/19 23:10 Dose: 125 mls/hr Ceftriaxone Sodium 1 gm/ (Sodium Chloride) 50 mls @ 100 mls/hr IV Q24H [facility] Last Admin: 04/22/19 23:09 Dose: 100 mls/hr Clindamycin Phosphate 300 mg/ (Sodium Chloride) 52 mls @ 150 mls/hr IV Q12H [facility] Last Admin: 04/23/19 00:44 Dose: 150 mls/hr Clindamycin Phosphate 300 mg/ (Sodium Chloride) 52 mls @ 104 mls/hr IV Q12H [facility] Last Admin: 04/23/19 12:31 Dose: 104 mls/hr Lorazepam (Ativan) 0.5 mg IVPUSH ONETIME ONE Stop: 04/22/19 20:05 Last Admin: 04/22/19 20:11 Dose: 0.5 mg Lorazepam (Ativan) 0.5 mg IVPUSH Q6H PRN PRN Reason: Agitation - Exam General: Reports: Alert, Cooperative, No Acute Distress. Denies: Oriented Lungs: Reports: Clear to Auscultation, Normal Respiratory Effort Cardiovascular: Reports: Regular Rate, Regular Rhythm, No Murmurs GI/Abdominal Exam: Soft, Non-Tender, No Organomegaly, No Distention
== END 2019-04-24 11:20 | disposition home health service (06) ==
LOC: JP.ED 18:54 → JP.MS 22:17
PROVIDERS: ADMIT Internal Medicine; ATTEND Hospitalist
DX: R41.0 Disorientation, unspecified (principal); R53.1 Weakness; F03.90 Unspecified dementia, unspecified severity, without behavioral disturbance, psychotic disturbance, mood disturbance, and anxiety; I25.10 Atherosclerotic heart disease of native coronary artery without angina pectoris; R79.89 Other specified abnormal findings of blood chemistry; I10 Essential (primary) hypertension; K21.9 Gastro-esophageal reflux disease without esophagitis; Z88.0 Allergy status to penicillin; Z79.899 Other long term (current) drug therapy; Z79.01 Long term (current) use of anticoagulants
CPT/HCPCS: 36415; 70450; 71045; 80053; 81001; 83605; 84484; 85025; 86140; 87040; 87086; 87804; 93005; 93010; 96361; 96365; 96367; 96375; 96376; 99284; 99285; A9270; G0378; J0696; J2060; J3490; J7030; J7050; 96374

== ENCOUNTER 2019-06-24 09:12 | Emergency (ER) | payer MEDICARE, BC ==
[2019-06-24 09:23] VITALS: BP 128/60; PULSE 72
--- NOTE | 2019-06-24 09:47 | EDM.PDOC ---
ED HPI GENERAL MEDICAL PROBLEM - General Chief Complaint: Lower Extremity Injury/Pain Stated Complaint: MEDICAL VIA [facility] Time Seen by Provider: 06/24/19 09:45 Source of Information: Reports: Patient History Limitations: Reports: No Limitations - History of Present Illness INITIAL COMMENTS - FREE TEXT/NARRATIVE: pt states he was fine this am when he first got up but after walking out of the bedroom he developed numbness in both legs. It was much worse on the left. He did not have pain. He had nothing in his upper extremities He did not have a headache. No dizziness. Onset: Today, Sudden Duration: Hour(s): Location: Reports: Lower Extremity, Left, Lower Extremity, Right Associated Symptoms: Reports: Weakness - Related Data Allergies Allergy/AdvReac Type Severity Reaction Status Date / Time amoxicillin Allergy Cannot Verified 06/20/19 11:28 Remember lisinopril AdvReac Cough Verified 06/24/19 09:32 Home Meds: Home Meds Simvastatin [Zocor] 40 mg PO BEDTIME 05/09/14 [History] Acetaminophen [Tylenol] 500 mg PO Q4H PRN 06/30/18 [History] Cholecalciferol (Vitamin D3) [Vitamin D3] 1 tab PO DAILY 06/30/18 [History] Clopidogrel Bisulfate [Clopidogrel] 75 mg PO DAILY 06/30/18 [History] Famotidine 20 mg PO DAILY 06/30/18 [History] Nitroglycerin [Nitrostat] 1 tab SL ASDIRECTED 06/30/18 [History] Apixaban [Eliquis] 2.5 mg PO BID 04/22/19 [History] Metoprolol Succinate 50 mg PO DAILY 04/22/19 [History] amLODIPine [Norvasc] 5 mg PO DAILY 06/20/19 [History] Losartan [Cozaar] 25 mg PO DAILY 06/24/19 [History] Past Medical History HEENT History: Reports: Allergic Rhinitis, Cataract, Hard of Hearing, Impaired Vision Cardiovascular History: Reports: Blood Clots/VTE/DVT, Bypass, CAD, High Cholesterol, Hypertension, [place], Pacemaker, Stents Gastrointestinal History: Reports: GERD Other Gastrointestinal History: colitis Genitourinary History: Reports: Renal Calculus Musculoskeletal History: Reports: Other (See Below) Other Musculoskeletal History: bursitis left Hematologic History: Reports: Anticoagulation Therapy - Infectious Disease History Infectious Disease History: Reports: Chicken Pox, Measles, Mumps - Past Surgical History Head Surgeries/Procedures: Reports: None HEENT Surgical History: Reports: Cataract Surgery, Tonsillectomy Cardiovascular Surgical History: Reports: Coronary Artery Bypass, Coronary Artery Stent GI Surgical History: Reports: Appendectomy Musculoskeletal Surgical History: Reports: Carpal Tunnel Dermatological Surgical History: Reports: None Social & Family History - Family History Family Medical History: Noncontributory - Tobacco Use Smoking Status *Q: Former Smoker Used Tobacco, but Quit: Yes Month/Year Tobacco Last Used: 1969 - Caffeine Use Caffeine Use: Reports: Coffee, Soda, Tea - Recreational Drug Use Recreational Drug Use: No Review of Systems - Review of Systems Review Of Systems: See Below Constitutional: Reports: No Symptoms Eyes: Reports: No Symptoms Ears: Reports: No Symptoms Nose: Reports: No Symptoms Mouth/Throat: Reports: No Symptoms Respiratory: Reports: No Symptoms Cardiovascular: Reports: No Symptoms GI/Abdominal: Reports: No Symptoms Genitourinary: Reports: No Symptoms Musculoskeletal: Reports: Other (numbness in the left leg. ) Skin: Reports: No Symptoms ED EXAM, GENERAL - Physical Exam Exam: See Below Free Text/Narrative:: pt arrived with a fairly acute onset of numbness in the left leg. Particularly below the knee. It has improved some since it started. He duid not have a headache or other neuro symptoms. He hasd no numbness in the upper extremity. Exam Limited By: No Limitations General Appearance: Alert, Anxious, Mild Distress, Other (pupils are equal and reactive to lite. ) Ears: Normal TMs Nose: Normal Inspection Throat/Mouth: Normal Inspection Head: Atraumatic Neck: Normal Inspection Respiratory/Chest: No Respiratory Distress Cardiovascular: Regular Rate, Rhythm GI/Abdominal: Soft, Non-Tender (Male) Exam: Deferred Rectal (Males) Exam: Deferred Back Exam: Other ( mild tenderness over the lower lumbar. ) Extremities: Other (pt does not have palpable pulses. He does have dorsalis pedis with a doppler. He does have a stent in the left leg. He has pretty normal color at this time. The temp in the 2 lower extremties are about the same. ) Neurological: Alert, Oriented, Normal Cognition Psychiatric: Normal Affect Course - Vital Signs Last Recorded V/S: Last Vital Signs Temp 36.2 C 06/24/19 09:28 Pulse 72 06/24/19 09:28 Resp 16 12/01/19 09:28 BP 128/60 06/24/19 09:28 Pulse Ox 98 06/24/19 09:28 - Orders/Labs/Meds Orders: Active Orders 24 hr Category Date Time Status VL Duplex Lwr Ext Art Comp Bi [US] Stat Exams 06/24/19 09:43 Ordered Labs: Laboratory Tests 06/24/19 06/24/19 06/24/19 Range/Units 09:27 09:27 09:55 WBC 8.2 (4.5-11.0) K/uL RBC 3.94 L (4.30-5.90) M/uL Hgb 11.6 L (12.0-15.0) g/dL Hct 36.0 L (40.0-54.0) % MCV 91 (80-98) fL MCH 29 (27-31) pg MCHC 32 (32-36) % Plt Count 266 (150-400) K/uL Neut % (Auto) 65 (36-66) % Lymph % (Auto) 21 L (24-44) % [place] % (Auto) 7 H (2-6) % Eos % (Auto) 6 H (2-4) % Baso % (Auto) 1 (0-1) % Sodium 138 L (140-148) mmol/L Potassium 4.2 (3.6-5.2) mmol/L Chloride 104 (100-108) mmol/L Carbon Dioxide 25 (21-32) mmol/L Anion Gap 13.2 (5.0-14.0) mmol/L BUN 35 H D (7-18) mg/dL Creatinine 1.6 H (0.8-1.3) mg/dL Est Cr Clr Drug Dosing 30.88 mL/min Estimated GFR (MDRD) 41 L (>60) Glucose 90 (74-106) mg/dL Calcium 8.7 (8.5-10.1) mg/dL Total Bilirubin 0.4 D (0.2-1.0) mg/dL AST 17 (15-37) U/L ALT 16 (12-78) U/L Alkaline Phosphatase 47 (46-116) U/L Total Protein 6.7 (6.4-8.2) g/dL Albumin 3.2 L (3.4-5.0) g/dL Globulin 3.5 (2.3-3.5) g/dL Albumin/Globulin Ratio 0.9 L (1.2-2.2) Urine Color Yellow (YELLOW) Urine Appearance Clear (CLEAR) Urine pH 5.5 (5.0-8.0) Ur Specific [place] 1.020 (1.008-1.030) Urine Protein Negative (NEGATIVE) mg/dL Urine Glucose (UA) Negative (NEGATIVE) mg/dL Urine Ketones Negative (NEGATIVE) mg/dL Urine Occult Blood Moderate H (NEGATIVE) Urine Nitrite Negative (NEGATIVE) Urine Bilirubin Negative (NEGATIVE) Urine Urobilinogen 0.2 (0.2-1.0) EU/dL Ur Leukocyte Esterase Negative (NEGATIVE) Urine RBC 0-5 (0-5) Urine WBC 0-5 (0-5) Ur Epithelial Cells Not seen Amorphous Sediment Not seen Urine Bacteria Not seen Urine Mucus Not seen - Re-Assessments/Exams Free Text/Narrative Re-Assessment/Exam: 06/24/19 11:18 pt had a arterial doppler and he is definitely getting flow to the foot. This is somewhat impaired He had a cat scan of the head which showedd no acute findings. He had a lumbar spine series which shows sig sclosis and he has alot of calcification on the left side. Pt has a clear urine. 06/24/19 11:20 Departure - Departure Time of Disposition: 11:28 Disposition: Home, Self-Care 01 Condition: Fair Clinical Impression: Numbness in left leg, Scoliosis deformity of spine, Peripheral vascular disease - Discharge Information Referrals: PCP,None [Primary Care Provider] - Forms: ED Department Discharge Care Plan Goals: rtc for lumbar MRI, rtc if this gets worse, appt with Dr Dye on Tuesday or tue. - My Orders Last 24 Hours: My Active Orders 06/24/19 09:43 VL Duplex Lwr Ext Art Comp Bi [US] Stat - Assessment/Plan Last 24 Hours: My Active Orders 06/24/19 09:43 VL Duplex Lwr Ext Art Comp Bi [US] Stat
--- NOTE | 2019-06-24 10:42 | CRLCR ---
Indication: Numbness both legs. Worse on the left Technique: Three views of the lumbar spine. Comparison: None Findings: Levoscoliosis of the lumbar spine is identified. Osteopenia is identified. Intervertebral disc space narrowing is identified, particularly L2-L3, L4-5, and L5-S1. Facet joint arthropathy is identified within the mid and lower lumbar spine. Extensive vascular calcifications are identified. Mild compression of L3 and L4 is suspected, chronicity uncertain. Impression: Extensive degenerative change. Dictated by Debbie Huber MD @ Jun 24 2019 10:40AM Signed by Dr. Debbie Huber @ Jun 24 2019 10:41AM
--- NOTE | 2019-06-24 10:46 | CRLCT ---
Numbness and weakness in the leg. Noncontrast head CT. COMPARISON: Head CT 04/22/2019. Findings: Generalized parenchymal volume loss with periventricular hypo lucencies generalized parenchymal volume loss. No acute intracranial hemorrhage or mass. No midline shift. No abnormal extra-axial air fluid collections. Mucosal thickening of the ethmoid air cells. Paranasal sinuses masters cells skull scalp appear unremarkable. IMPRESSION: 1. No acute intracranial hemorrhage or mass. Please note that all CT scans at this facility use dose modulation, iterative reconstruction, and/or weight-based dosing when appropriate to reduce radiation dose to as low as reasonably achievable. Dictated by Lorena Landeros MD @ Jun 24 2019 10:42AM Signed by Dr. Lorena Landeros @ Jun 24 2019 10:45AM
--- NOTE | 2019-06-24 11:57 | CRLUS ---
ULTRASOUND BILATERAL LOWER EXTREMITIES CLINICAL HISTORY: Numbness in bilateral legs. COMPARISON: None available. TECHNIQUE: Duplex arterial ultrasound examination was performed of bilateral lower extremities with 2D and spectral analysis and color Doppler imaging. FINDINGS: There is calcific atherosclerotic disease seen throughout bilateral lower extremities. The stent is noted to be patent in the left SFA. RIGHT LEG: Common femoral artery : Triphasic waveform, 171 cm/second Profunda artery: Biphasic waveform, 172 cm/second Profunda superficial femoral artery: Biphasic waveform, 87 cm/second Mid superficial femoral artery: Biphasic waveform, 85 cm/second Distal superficial femoral artery: Biphasic waveforms, 97 cm/second Proximal Pop A: Biphasic waveform, 66 cm/second Distal Pop A: Biphasic waveform, 78 cm/second Anterior tibial artery: Monophasic waveform, 20 cm/second Peroneal: Biphasic waveform, 25 cm/second Posterior tibial artery: Biphasic waveform, 55 cm/second Dorsalis pedis: Biphasic waveform, 22 cm/second LEFT LEG: Common femoral artery: Biphasic waveform, 103 cm/second Profunda artery: Biphasic waveform, 110 cm/second Proximal superficial femoral artery: Biphasic waveform, 66 cm/second Mid superficial femoral artery: Biphasic waveform, 152 cm/second Distal superficial femoral artery: Biphasic waveform, 44 cm/second Proximal Pop A: Biphasic waveform, 42 cm/second Distal Pop A: Biphasic waveform, 51 cm/second Anterior tibial artery: Monophasic/Biphasic waveform, 19 cm/second Peroneal: Monophasic/Biphasic waveform, 34 cm/second Posterior tibial artery: Biphasic waveform, 33 cm/second Dorsalis pedis: Monophasic waveform, 20 cm/second IMPRESSION: Rim-calcified atherosclerotic disease throughout bilateral lower extremities with predominantly runoff disease seen and otherwise multiphasic waveforms. A left SFA stent is patent. Flakito Pham M.D. [email or web address] MYRNA/franc / bm/Dictated by: Flakito Pham MD @ 06/24/2019 4:38:00 PM (Electronically Signed)
== END 2019-06-24 11:42 | disposition home or self-care (01) ==
LOC: JP.ED 09:12
DX: I73.9 Peripheral vascular disease, unspecified (principal); M41.9 Scoliosis, unspecified; I25.2 Old myocardial infarction; I25.10 Atherosclerotic heart disease of native coronary artery without angina pectoris; I10 Essential (primary) hypertension; E78.00 Pure hypercholesterolemia, unspecified; Z88.8 Allergy status to other drugs, medicaments and biological substances; Z88.0 Allergy status to penicillin; Z79.899 Other long term (current) drug therapy; Z86.718 Personal history of other venous thrombosis and embolism; Z79.01 Long term (current) use of anticoagulants; Z79.02 Long term (current) use of antithrombotics/antiplatelets; Z95.1 Presence of aortocoronary bypass graft; Z95.5 Presence of coronary angioplasty implant and graft
CPT/HCPCS: 36415; 70450; 72100; 80053; 81001; 85025; 93925; 99285-25

== ENCOUNTER 2019-09-15 11:23 | Emergency (ER) | payer MEDICARE, BC ==
--- NOTE | 2019-09-15 12:12 | CRLCT ---
INDICATION: Unable to move left arm, unable to lift leg, unable to use a walker. TECHNIQUE: CT Head without contrast. COMPARISON: Noncontrast head CT 06/24/2019 FINDINGS: Prominence of the ventricles and sulci, similar to the prior CT, consistent with age related cerebral volume loss. No extra-axial collection. No acute intracranial hemorrhage. No mass effect or edema. No CT evidence of acute, large territorial infarction. Vascular calcifications at the skull base. Visualized paranasal sinuses and mastoid air cells are well aerated. Calvarium is unremarkable. IMPRESSION: 1. No acute intracranial hemorrhage or mass effect. 2. No CT evidence of acute, large territorial infarction. If there is continued clinical concern for stroke, MRI could be considered. Dictated by Karen Alonzo MD @ 09/15/2019 12:10:46 PM Please note that all CT scans at this facility use dose modulation, iterative reconstruction, and/or weight-based dosing when appropriate to reduce radiation dose to as low as reasonably achievable. Dictated by: Karen Alonzo MD @ 09/15/2019 12:10:58 (Electronically Signed)
[2019-09-15] MEDS ORDERED: Sodium Chloride 0.9% 1,000 ML IV SCH ×2 (12:30→14:15)
[2019-09-15] MEDS ORDERED: cefTRIAXone 1 GM in Sodium Chloride 0.9% 50 ML IV ONE (12:39)
--- NOTE | 2019-09-15 12:55 | EDM.PDOC ---
ED HPI GENERAL MEDICAL PROBLEM - General Chief Complaint: Neuro Symptoms/Deficits Stated Complaint: MEDICAL VIA [facility] Time Seen by Provider: 09/15/19 11:30 Source of Information: Reports: Patient History Limitations: Reports: No Limitations - History of Present Illness INITIAL COMMENTS - FREE TEXT/NARRATIVE: pt arrived complaining of numbness in his left arm. He was having trouble making a fist and he thought he was having trouble lifting his left arm he seemed quite anxious. He also said he was having a problem moving both legs. He was very mottled in both feet at one time they did look better now. Later he was lifting his legs. He was weaker and he was needing to walk with a walker. He was fine yesterday. Onset: Today, Other ( started about 8 am. ) Duration: Hour(s): Location: Reports: Upper Extremity, Left, Generalized, Other (pt is having tingling in his left arm. ) Associated Symptoms: Reports: Chest Pain, Weakness - Related Data Allergies Allergy/AdvReac Type Severity Reaction Status Date / Time amoxicillin Allergy Cannot Verified 07/04/19 11:34 Remember lisinopril AdvReac Cough Verified 07/04/19 11:34 Home Meds: Home Meds Simvastatin [Zocor] 40 mg PO BEDTIME 05/09/14 [History] Acetaminophen [Tylenol] 500 mg PO Q4H PRN 06/30/18 [History] Cholecalciferol (Vitamin D3) [Vitamin D3] 1 tab PO DAILY 06/30/18 [History] Clopidogrel Bisulfate [Clopidogrel] 75 mg PO DAILY 06/30/18 [History] Famotidine 20 mg PO DAILY 06/30/18 [History] Nitroglycerin [Nitrostat] 1 tab SL ASDIRECTED 06/30/18 [History] Apixaban [Eliquis] 2.5 mg PO BID 04/22/19 [History] Metoprolol Succinate 50 mg PO DAILY 04/22/19 [History] amLODIPine [Norvasc] 5 mg PO DAILY 06/20/19 [History] Losartan [Cozaar] 25 mg PO DAILY 06/24/19 [History] Past Medical History HEENT History: Reports: Allergic Rhinitis, Cataract, Hard of Hearing, Impaired Vision Cardiovascular History: Reports: Blood Clots/VTE/DVT, Bypass, CAD, High Cholesterol, Hypertension, CT, Pacemaker, Stents Gastrointestinal History: Reports: GERD Other Gastrointestinal History: colitis Genitourinary History: Reports: Renal Calculus Musculoskeletal History: Reports: Other (See Below) Other Musculoskeletal History: bursitis left Hematologic History: Reports: Anticoagulation Therapy - Infectious Disease History Infectious Disease History: Reports: Chicken Pox, Measles, Mumps - Past Surgical History Head Surgeries/Procedures: Reports: None HEENT Surgical History: Reports: Cataract Surgery, Tonsillectomy Cardiovascular Surgical History: Reports: Coronary Artery Bypass, Coronary Artery Stent GI Surgical History: Reports: Appendectomy Musculoskeletal Surgical History: Reports: Carpal Tunnel Dermatological Surgical History: Reports: None Social & Family History - Family History Family Medical History: Noncontributory - Tobacco Use Smoking Status *Q: Unknown Ever Smoked - Caffeine Use Caffeine Use: Reports: Coffee - Recreational Drug Use Recreational Drug Use: No ED ROS GENERAL - Review of Systems Review Of Systems: See Below Constitutional: Reports: Malaise, Weakness, Other ( tingling in the left arm. At first he was having difficulty liiftying the arm. ) HEENT: Reports: No Symptoms Respiratory: Reports: No Symptoms Cardiovascular: Reports: Other (pt did talk about chest pressure. He has a pacemaker. ) Endocrine: Reports: No Symptoms GI/Abdominal: Reports: No Symptoms : Reports: No Symptoms Musculoskeletal: Reports: Other (pt had very mottled looking feet at [facility]. ) Skin: Reports: No Symptoms ED EXAM, NEURO - Physical Exam Exam: See Below Text/Narrative:: pt arrived talking about tingling in his left arm and he was having more difficulty walking. His feet did look very blue,. Exam Limited By: No Limitations General Appearance: Alert, Anxious, Mild Distress Ears: Normal TMs Nose: Normal Inspection Throat/Mouth: Normal Inspection Head Exam: Atraumatic Neck: Normal Inspection Respiratory/Chest: No Respiratory Distress Cardiovascular: Regular Rate, Rhythm, Other (pt is paced at this time. ) GI/Abdominal: Soft, Non-Tender (Male) Exam: Deferred Rectal (Males) Exam: Deferred Neurological: Alert, Other (pt did not lift his left arm well at first but later was lifting it. He complained of tingling in the arm. He he was lifting both legs ok. He had diminished pulses in both feet that is chronic. ) Back Exam: Normal Inspection Extremities: Other ( decreased pulses ) Psychiatric: Anxious Course - Vital Signs Last Recorded V/S: Last Vital Signs Temp 35.7 C L 09/15/19 11:55 Pulse 78 09/15/19 12:16 Resp 14 09/15/19 12:16 BP 155/70 H 09/15/19 12:16 Pulse Ox 99 09/15/19 12:16 - Orders/Labs/Meds Orders: Active Orders 24 hr Category Date Time Status Cardiac Monitoring [RC] .As Directed Care 09/15/19 11:40 Active EKG Documentation Completion [RC] ASDIRECTED Care 09/15/19 11:39 Active CULTURE BLOOD [BC] Urgent Lab 09/15/19 12:38 Ordered CULTURE BLOOD [BC] Urgent Lab 09/15/19 12:38 Ordered CULTURE URINE [RM] Stat Lab 09/15/19 12:28 Received LACTIC ACID [CHEM] Stat Lab 09/15/19 12:23 Ordered Sodium Chloride 0.9% [Normal Saline] 1,000 ml Med 09/15/19 12:30 Active IV ASDIRECTED cefTRIAXone [Rocephin] 1 gm Med 09/15/19 12:39 Active Sodium Chloride 0.9% [Normal Saline] 50 ml IV ONETIME Blood Culture x2 Reflex Set [OM.PC] Urgent Oth 09/15/19 12:38 Ordered EKG 12 Lead [EK] Routine Ther 09/15/19 11:39 Ordered Medication Orders Sodium Chloride (Normal Saline) 1,000 mls @ 999 mls/hr IV ASDIRECTED SEAR Last Admin: 09/15/19 12:35 Dose: 999 mls/hr Ceftriaxone Sodium 1 gm/ (Sodium Chloride) 50 mls @ 100 mls/hr IV ONETIME ONE Stop: 09/15/19 13:08 Labs: Laboratory Tests 09/15/19 09/15/19 09/15/19 Range/Units 11:15 11:39 11:40 WBC 9.4 (4.5-11.0) K/uL RBC 4.46 (4.30-5.90) M/uL Hgb 13.3 (12.0-15.0) g/dL Hct 40.1 (40.0-54.0) % MCV 90 (80-98) fL MCH 30 (27-31) pg MCHC 33 (32-36) % Plt Count 315 (150-400) K/uL Neut % (Auto) 65 (36-66) % Lymph % (Auto) 23 L (24-44) % [place] % (Auto) 10 H (2-6) % Eos % (Auto) 2 (2-4) % Baso % (Auto) 1 (0-1) % PT 11.1 (9.5-12.0) sec INR 1.03 (0.80-1.20) APTT 28.5 (27.0-36.0) sec Sodium 139 L (140-148) mmol/L Potassium 4.5 (3.6-5.2) mmol/L Chloride 104 (100-108) mmol/L Carbon Dioxide 22 (21-32) mmol/L Anion Gap 17.5 H (5.0-14.0) mmol/L BUN 28 H (7-18) mg/dL Creatinine 1.9 H (0.8-1.3) mg/dL Est Cr Clr Drug Dosing 29.79 mL/min Estimated GFR (MDRD) 34 L (>60) Glucose 83 (74-106) mg/dL Calcium 9.7 (8.5-10.1) mg/dL Total Bilirubin 0.9 D (0.2-1.0) mg/dL AST 19 (15-37) U/L ALT 15 (12-78) U/L Alkaline Phosphatase 48 (46-116) U/L Total Protein 7.6 (6.4-8.2) g/dL Albumin 3.8 (3.4-5.0) g/dL Globulin 3.8 H (2.3-3.5) g/dL Albumin/Globulin Ratio 1.0 L (1.2-2.2) Urine Color (YELLOW) Urine Appearance (CLEAR) Urine pH (5.0-8.0) Ur Specific [place] (1.008-1.030) Urine Protein (NEGATIVE) mg/dL Urine Glucose (UA) (NEGATIVE) mg/dL Urine Ketones (NEGATIVE) mg/dL Urine Occult Blood (NEGATIVE) Urine Nitrite (NEGATIVE) Urine Bilirubin (NEGATIVE) Urine Urobilinogen (0.2-1.0) EU/dL Ur Leukocyte Esterase (NEGATIVE) Urine RBC (0-5) Urine WBC (0-5) Ur Epithelial Cells Amorphous Sediment Urine Bacteria Urine Mucus 09/15/19 Range/Units 11:48 WBC (4.5-11.0) K/uL RBC (4.30-5.90) M/uL Hgb (12.0-15.0) g/dL Hct (40.0-54.0) % MCV (80-98) fL MCH (27-31) pg MCHC (32-36) % Plt Count (150-400) K/uL Neut % (Auto) (36-66) % Lymph % (Auto) (24-44) % [place] % (Auto) (2-6) % Eos % (Auto) (2-4) % Baso % (Auto) (0-1) % PT (9.5-12.0) sec INR (0.80-1.20) APTT (27.0-36.0) sec Sodium (140-148) mmol/L Potassium (3.6-5.2) mmol/L Chloride (100-108) mmol/L Carbon Dioxide (21-32) mmol/L Anion Gap (5.0-14.0) mmol/L BUN (7-18) mg/dL Creatinine (0.8-1.3) mg/dL Est Cr Clr Drug Dosing mL/min Estimated GFR (MDRD) (>60) Glucose (74-106) mg/dL Calcium (8.5-10.1) mg/dL Total Bilirubin (0.2-1.0) mg/dL AST (15-37) U/L ALT (12-78) U/L Alkaline Phosphatase (46-116) U/L Total Protein (6.4-8.2) g/dL Albumin (3.4-5.0) g/dL Globulin (2.3-3.5) g/dL Albumin/Globulin Ratio (1.2-2.2) Urine Color Yellow (YELLOW) Urine Appearance Cloudy A (CLEAR) Urine pH 6.5 (5.0-8.0) Ur Specific [place] 1.015 (1.008-1.030) Urine Protein Trace H (NEGATIVE) mg/dL Urine Glucose (UA) Negative (NEGATIVE) mg/dL Urine Ketones Negative (NEGATIVE) mg/dL Urine Occult Blood Moderate H (NEGATIVE) Urine Nitrite Positive H (NEGATIVE) Urine Bilirubin Negative (NEGATIVE) Urine Urobilinogen 0.2 (0.2-1.0) EU/dL Ur Leukocyte Esterase Large H (NEGATIVE) Urine RBC 10-20 H (0-5) Urine WBC 75-100 H (0-5) Ur Epithelial Cells Few Amorphous Sediment Not seen Urine Bacteria Many Urine Mucus Not seen Meds: Medications Generic Name Dose Route Start Last Admin Trade Name Wilian PRN Reason Stop Dose Admin Sodium Chloride 1,000 mls @ 999 mls/hr 09/15/19 12:30 09/15/19 12:35 Normal Saline IV 999 mls/hr ASDIRECTED SERA Administration Ceftriaxone Sodium 1 gm/ 50 mls @ 100 mls/hr 09/15/19 12:39 Sodium Chloride IV 09/15/19 13:08 ONETIME ONE - Re-Assessments/Exams Free Text/Narrative Re-Assessment/Exam: 09/15/19 13:00 cat scan of the head was free of acute findings. His lab work has a high creatnine and a definite UTI Departure - Departure Time of Disposition: 13:09 Disposition: DC/Tfer to Acute Hospital 02 Condition: Fair Clinical Impression: Left-sided weakness, Elevated troponin, Elevated lactic acid level, Sepsis, Renal insufficiency - Discharge Information Referrals: PCP,None [Primary Care Provider] - Care Plan Goals: transfer to [facility] Sepsis Event Note - Evaluation Sepsis Screening Result: No Definite Risk - Focused Exam Vital Signs: Vital Signs Temp Pulse Resp BP Pulse Ox 09/15/19 12:16 78 14 155/70 H 99 09/15/19 11:55 35.7 C L 61 13 132/57 L 100 09/15/19 11:48 59 L 18 112/58 L 100 09/15/19 11:32 59 L 18 155/70 H 100 09/15/19 11:26 35.7 C L 61 13 132/57 L 100 Date Exam was Performed: 09/15/19 Time Exam was Performed: 12:50 - My Orders Last 24 Hours: My Active Orders 09/15/19 11:39 EKG Documentation Completion [RC] ASDIRECTED EKG 12 Lead [EK] Routine 09/15/19 11:40 Cardiac Monitoring [RC] .As Directed 09/15/19 12:23 LACTIC ACID [CHEM] Stat 09/15/19 12:28 CULTURE URINE [RM] Stat 09/15/19 12:30 Sodium Chloride 0.9% [Normal Saline] 1,000 ml IV ASDIRECTED 09/15/19 12:38 CULTURE BLOOD [BC] Urgent CULTURE BLOOD [BC] Urgent Blood Culture x2 Reflex Set [OM.PC] Urgent 09/15/19 12:39 cefTRIAXone [Rocephin] 1 gm Sodium Chloride 0.9% [Normal Saline] 50 ml IV ONETIME - Assessment/Plan Last 24 Hours: My Active Orders 09/15/19 11:39 EKG Documentation Completion [RC] ASDIRECTED EKG 12 Lead [EK] Routine 09/15/19 11:40 Cardiac Monitoring [RC] .As Directed 09/15/19 12:23 LACTIC ACID [CHEM] Stat 09/15/19 12:28 CULTURE URINE [RM] Stat 09/15/19 12:30 Sodium Chloride 0.9% [Normal Saline] 1,000 ml IV ASDIRECTED 09/15/19 12:38 CULTURE BLOOD [BC] Urgent CULTURE BLOOD [BC] Urgent Blood Culture x2 Reflex Set [OM.PC] Urgent 09/15/19 12:39 cefTRIAXone [Rocephin] 1 gm Sodium Chloride 0.9% [Normal Saline] 50 ml IV ONETIME
[2019-09-15 13:59] VITALS: BP 160/64; PULSE 60
--- NOTE | 2019-09-17 08:50 | CR ---
CHEST: Portable 09/15/2019 at 1:32 PM CLINICAL HISTORY:Chest pain COMPARISON:2019 FINDINGS: Heart size is normal. Patient has had previous sternotomy. There is a permanent cardiac pacer. Lung acuna are clear. Pulmonary vascularity is normal. There is some left infrahilar scarring. Impression: No acute cardiopulmonary process Scarring in the left infrahilar region
== END 2019-09-15 14:14 ==
LOC: JP.ED 11:23
DX: A41.9 Sepsis, unspecified organism (principal); N28.9 Disorder of kidney and ureter, unspecified; R79.89 Other specified abnormal findings of blood chemistry; R74.0 Nonspecific elevation of levels of transaminase and lactic acid dehydrogenase [LDH]; R53.1 Weakness; I25.10 Atherosclerotic heart disease of native coronary artery without angina pectoris; I21.9 Acute myocardial infarction, unspecified; I10 Essential (primary) hypertension; E78.00 Pure hypercholesterolemia, unspecified; Z88.0 Allergy status to penicillin; Z88.8 Allergy status to other drugs, medicaments and biological substances; Z95.5 Presence of coronary angioplasty implant and graft; Z79.899 Other long term (current) drug therapy
CPT/HCPCS: 36415; 70450; 71045; 80053; 81001; 83605; 84484; 85025; 85610; 85730; 87040; 87086; 87088; 87186; 93005; 96361; 96365; 99285; J0696; J7030; J7050